=== PATIENT | male | born 1960 | race Caucasian/White ===

== ENCOUNTER 2016-11-29 15:00 | Emergency (ER) | payer OTHER ==
[~2016-11-29] VITALS: Ht 182.9 cm; Wt 102.8 kg
[2016-11-29 15:03] VITALS: TEMP 36.9; Ht 182.9 cm; Wt 102.8 kg
[2016-11-29] MEDS ORDERED: SODIUM CHLORIDE 0.9% 1000ML 2,000 ML IV STA (15:21)
[2016-11-29] MEDS ORDERED: HYDROmorphone INJ 1 MG/ML SYR IV STA (15:21)
[2016-11-29] MEDS ORDERED: ONDANSETRON INJ 2 MG/ML 2 ML VIAL IV STA (15:21)
--- NOTE | 2016-11-29 15:29 | EMERGENCY ROOM VISIT NOTE ---
History Report prepared by Gio: Anton Singer Under the Supervision of: Dr. Eric Vazquez M.D. First contact with patient: 15:09 Chief Complaint: KIDNEY STONE Stated Complaint: POSSIBLE KIDNEY STONE History of Present Illness The patient is a 56 year old male who presents to the Emergency Room with complaints of intermittent bilateral flank pain starting about 5 days ago. He also complains of intermittent diaphoresis, chills, and subjective fever. He has been taking Advil and Aleve with some relief. He has been applying heat and ice without relief. He has a history of kidney stones and reports similar symptoms today. His last kidney stone was a few years ago. The patient has a history of chronic back pain. He felt that he pulled something when he got out of bed 6 days ago but he was at baseline the rest of the day. He denies any history of prostate issues. The patient denies urinary symptoms, diarrhea, constipation, lower extremity weakness, or any other complaints. Source of History: patient Onset: about 5 days ago Position: other (bilateral flank ) Timing: intermittent Modifying Factors (Relieving): ice (without relief), heat (without relief), other (Aleve and Advil with some relief) Associated Symptoms: + fevers (subjective), + chills, + diaphoresis, No diarrhea, No urinary symptoms, No weakness Review of Systems See HPI for pertinent positives & negatives. A total of 10 systems reviewed and were otherwise negative. Past Medical & Surgical Medical Problems: (1) Kidney stone (2) Postoperative pain Surgical Problems: (1) H/O cervical spine surgery (2) H/O lumbosacral spine surgery (3) H/O neck surgery (4) History of back surgery (5) History of herniorrhaphy Family History Kidney disease Kidney stones Social History Smoking Status: Never Smoker Marital Status: Housing Status: lives with significant other Occupation Status: employed Current/Historical Medications Scheduled PRN Ibuprofen (Advil), 400-600 MG PO Q6H PRN for Pain Allergies Coded Allergies: Silodosin (Verified Allergy, Severe, SHORTNESS OF BREATH-"FELT LIKE HAVING A HEART ATTACK"., 11/29/16) Hydrocodone (Verified Allergy, Unknown, itching, tingling around mouth, 05/07) Physical Exam Vital Signs Date Time Temp Pulse Resp B/P (MAP) Pulse Ox O2 Delivery O2 Flow Rate FiO2 11/29/16 17:56 73 18 122/80 97 Room Air 11/29/16 17:10 67 16 135/86 98 11/29/16 15:03 36.9 90 20 138/88 97 Room Air Physical Exam GENERAL: Patient is uncomfortable appearing and in moderate distress. HEENT: No acute trauma, normocephalic atraumatic, mucous membranes moist, no nasal congestion, no scleral icterus. NECK: No stridor, no adenopathy, no meningismus, trachea is midline. LUNGS: No dyspnea. Clear to auscultation and equal bilaterally. No wheeze, no rhonchi. HEART: Tachycardic rate and regular rhythm. No murmurs, rubs, gallops appreciated. ABDOMEN: Soft, nontender, bowel sounds positive, no masses appreciated, no peritonitis. BACK: No midline tenderness, no CVA tenderness EXTREMITIES: Normal motion all extremities, no cyanosis, no edema. NEUROLOGIC: Alert and oriented, no acute motor or sensory deficits, no focal weakness, cranial nerves grossly intact. SKIN: Diaphoretic. No rash, no jaundice. Medical Decision & Procedures ER Provider Diagnostic Interpretation: CT results as stated below per interpretation by me and the radiologist: CT SCAN OF THE ABDOMEN AND PELVIS WITHOUT CONTRAST CLINICAL HISTORY: Bilateral flank pain COMPARISON STUDY: 04/08/2015 TECHNIQUE: CT scan of the abdomen and pelvis was performed from the lung bases to the proximal femurs. Images are reviewed in the axial, sagittal, and coronal planes. IV contrast was not administered for this examination. CT DOSE: 1862.15 mGy.cm FINDINGS: Lower chest: There are bibasal atelectatic changes. Liver: There is mild hepatic steatosis. No focal masses are visualized Gallbladder: Unremarkable. Spleen: Normal in size and attenuation. Pancreas: Unremarkable. Adrenal glands: Unremarkable. Kidneys: No renal, ureteral, or bladder calculi are visualized. There is a 1 cm left renal cyst. Bowel: There are no transition zones indicate bowel obstruction. The appendix is surgically absent. There is no evidence of acute diverticulitis. Peritoneum: There is no intraperitoneal free air or abdominal ascites. There are postsurgical changes of a left inguinal hernia repair. Vasculature: The abdominal aorta is normal in course and caliber. Adenopathy: None. Pelvic viscera: The bladder, and pelvic viscera are unremarkable. Skeletal structures: No destructive osseous lesions are seen. IMPRESSION: 1. No renal, ureteral, or bladder calculi identified 2. No evidence of bowel obstruction. No evidence of free air 3. Surgically absent appendix 4. No evidence of acute diverticulitis. Electronically signed by: Andres Adair M.D. 11/29/2016 4:02 PM Dictated Date/Time: 11/29/2016 3:58 PM Laboratory Results 11/29/16 15:24 Red Blood Count 5.37, Mean Corpuscular Volume 91.8, Mean Corpuscular Hemoglobin 30.7, Mean Corpuscular Hemoglobin Concent 33.5, Mean Platelet Volume 9.8, Neutrophils (%) (Auto) 53.4, Lymphocytes (%) (Auto) 39.3, Monocytes (%) (Auto) 5.2, Eosinophils (%) (Auto) 1.4, Basophils (%) (Auto) 0.5, Neutrophils # (Auto) 4.52, Lymphocytes # (Auto) 3.33, Monocytes # (Auto) 0.44, Eosinophils # (Auto) 0.12, Basophils # (Auto) 0.04 11/29/16 15:24 Test 11/29/16 15:24 11/29/16 17:05 White Blood Count 8.47 K/uL (4.8-10.8) Red Blood Count 5.37 M/uL (4.7-6.1) Hemoglobin 16.5 g/dL (14.0-18.0) Hematocrit 49.3 % (42-52) Mean Corpuscular Volume 91.8 fL (80-100) Mean Corpuscular Hemoglobin 30.7 pg (25-34) Mean Corpuscular Hemoglobin Concent 33.5 g/dl (32-36) Platelet Count 248 K/uL (130-400) Mean Platelet Volume 9.8 fL (7.4-10.4) Neutrophils (%) (Auto) 53.4 % Lymphocytes (%) (Auto) 39.3 % Monocytes (%) (Auto) 5.2 % Eosinophils (%) (Auto) 1.4 % Basophils (%) (Auto) 0.5 % Neutrophils # (Auto) 4.52 K/uL (1.4-6.5) Lymphocytes # (Auto) 3.33 K/uL (1.2-3.4) Monocytes # (Auto) 0.44 K/uL (0.11-0.59) Eosinophils # (Auto) 0.12 K/uL (0-0.5) Basophils # (Auto) 0.04 K/uL (0-0.2) RDW Standard Deviation 43.8 fL (36.4-46.3) RDW Coefficient of Variation 13.0 % (11.5-14.5) Immature Granulocyte % (Auto) 0.2 % Immature Granulocyte # (Auto) 0.02 K/uL (0.00-0.02) Erythrocyte Sedimentation Rate 6 mm/hr (0-14) Anion Gap 9.0 mmol/L (3-11) Est Creatinine Clear Calc Drug Dose 94.1 ml/min Estimated GFR () 87.1 Estimated GFR (Non- 75.2 BUN/Creatinine Ratio 14.0 (10-20) Calcium Level 8.7 mg/dl (8.5-10.1) Total Bilirubin 0.4 mg/dl (0.2-1) Direct Bilirubin 0.1 mg/dl (0-0.2) Aspartate Amino Transf (AST/SGOT) 21 U/L (15-37) Alanine Aminotransferase (ALT/SGPT) 35 U/L (12-78) Alkaline Phosphatase 115 U/L (45-117) Total Creatine Kinase 213 U/L (39-308) C-Reactive Protein < 0.29 mg/dl (0-0.29) Total Protein 7.7 gm/dl (6.4-8.2) Albumin 4.2 gm/dl (3.4-5.0) Lipase 137 U/L (73-393) Urine Color YELLOW Urine Appearance CLEAR (CLEAR) Urine pH 5.0 (4.5-7.5) Urine Specific [place] 1.025 (1.000-1.030) Urine Protein NEG (NEG) Urine Glucose (UA) NEG (NEG) Urine Ketones NEG (NEG) Urine Occult Blood NEG (NEG) Urine Nitrite NEG (NEG) Urine Bilirubin NEG (NEG) Urine Urobilinogen NEG (NEG) Urine Leukocyte Esterase NEG (NEG) Urine WBC (Auto) 0 /hpf (0-5) Urine RBC (Auto) 0-4 /hpf (0-4) Urine Hyaline Casts (Auto) 0 /lpf (0-5) Urine Epithelial Cells (Auto) 0-5 /lpf (0-5) Urine Bacteria (Auto) NEG (NEG) Laboratory results as reviewed by me. Medications Administered Medications (Trade) Dose Ordered Sig/Jose Route Start Time Stop Time Status Last Admin Dose Admin Sodium Chloride 2,000 ml @ 999 mls/hr Q2H1M STAT IV 11/29/16 15:21 11/29/16 17:21 DC 11/29/16 15:26 999 MLS/HR Hydromorphone HCl (Dilaudid Inj) 1 mg NOW STAT IV 11/29/16 15:21 11/29/16 15:23 DC 11/29/16 15:26 1 MG Ondansetron HCl (Zofran Inj) 4 mg NOW STAT IV 11/29/16 15:21 11/29/16 15:23 DC 11/29/16 15:26 4 MG Ketorolac Tromethamine (Toradol Inj) 30 mg NOW STAT IV 11/29/16 17:30 11/29/16 17:31 DC 11/29/16 17:56 30 MG ED Course 1509: The patient was evaluated in room A03. A complete history and physical exam was performed. 1521: Zofran Inj 4 mg IV, Dilaudid Inj 1 mg IV, Sodium Chloride 2000 ml @ 999 mls/hr IV 1610: I reevaluated the patient who is feeling better. He has not urinated yet. 1730: Toradol Inj 30 mg IV. :Reevaluated the patient who feels much better. He currently denies any pain Discussed results and discharge instructions: He verbalized understanding and agreement. I instructed him to return to the Emergency Room if his symptoms worsen at any point. The patient is ready for discharge. Medical Decision Differential: Renal Colic, Pyelonephritis, Hydronephrosis, Appendicitis, Diverticulitis, Retroperitoneal Bleed/Infection, Aortic Pathology, MSK, Neurologic Pathology, amongst other pathologies entertained. Medication Reconciliation: I attest that I have personally reviewed the patient 's current medication list. Blood pressure screening: Patient was found to have an elevated blood pressure and was referred to their primary doctor for recheck and further treatment. 56 yr old male arrives with complaint of bilateral lower flank discomfort. Also notes he has had some chills with non-measured temps. Associated nausea. Similar to previous kidney stones though hasn't had one in several years. Labs look good, urine clean, and CT without acute findings. He is feeling well after single dose Dilaudid and NSS bolus. He is not septic and is in no distress. With normal ESR/CRP and no neuro deficits I do not feel this is spinal abscess nor neuro issues. With normal pulses I doubt this is dissection and CT not consistent with rupture. CK OK. Symptoms not consistent with lyme. Denies bowel, bladder discomfort. No consistent with prostate infection. Will continue hydration at home and will give single dose Toradol to see if that helps some as outpatient. Reviewed RTED if worsening or other concerns. Did discuss doing CT with IV con if symptoms worsen or other symptoms develop but that with resolution of symptoms and currently normal findings will hold on doing that for now. Impression Primary Impression: Bilateral flank pain Additional Impression: Body aches Scribe Attestation The scribe's documentation has been prepared under my direction and personally reviewed by me in its entirety. I confirm that the note above accurately reflects all work, treatment, procedures, and medical decision making performed by me. Departure Information Dispostion Home / Self-Care Referrals Adolfo Zepeda M.D. (PCP) Forms HOME CARE DOCUMENTATION FORM, IMPORTANT VISIT INFORMATION Patient Instructions My [facility] [employer] Additional Instructions Keep well hydrated and avoid excessive exertion. Use Tylenol and Motrin as needed for mild symptoms. If severe worsening, fevers, weakness in legs, discoloration, vomiting, abdominal pain or other concerns, return for further evaluation. Problem Qualifiers
[2016-11-29 15:41] LABS: BASO % 0.5 %; BASO ABS # 0.04 K/uL (0-0.2); COMPLETE YES; EOS % 1.4 %; HEMATOCRIT 49.3 % (42-52); IG% 0.2 %; LYMPH % 39.3 %; LYMPH ABS # 3.33 K/uL (1.2-3.4); MEAN CELL VOLUME 91.8 fL (80-100); MEAN CORPUSCULAR HEMOGLOBIN 30.7 pg (25-34); MEAN CORPUSCULAR HGB CONC 33.5 g/dl (32-36); MEAN PLATELET VOLUME 9.8 fL (7.4-10.4); MONO % 5.2 %; NEUT % 53.4 %; PLATELET COUNT 248 K/uL (130-400); RED BLOOD COUNT 5.37 M/uL (4.7-6.1); WHITE BLOOD COUNT 8.47 K/uL (4.8-10.8)
[2016-11-29 15:52] LABS: ALT/SGPT 35 U/L (12-78); AST/SGOT 21 U/L (15-37); BLOOD UREA NITROGEN 15 mg/dl (7-18); CALCIUM 8.7 mg/dl (8.5-10.1); CARBON DIOXIDE 26 mmol/L (21-32); CHLORIDE 107 mmol/L (98-107); GLUCOSE 138 mg/dl (70-99); POTASSIUM 3.9 mmol/L (3.5-5.1); SODIUM 142 mmol/L (136-145)
[2016-11-29 15:55] LABS: ALKALINE PHOSPHATASE 115 U/L (45-117); C-REACTIVE PROTEIN < 0.29 mg/dl (0-0.29)
--- NOTE | 2016-11-29 16:03 | DIAGNOSTIC IMAGING REPORT ---
CT SCAN OF THE ABDOMEN AND PELVIS WITHOUT CONTRAST CLINICAL HISTORY: Bilateral flank pain COMPARISON STUDY: 04/08/2015 TECHNIQUE: CT scan of the abdomen and pelvis was performed from the lung bases to the proximal femurs. Images are reviewed in the axial, sagittal, and coronal planes. IV contrast was not administered for this examination. CT DOSE: 1862.15 mGy.cm FINDINGS: Lower chest: There are bibasal atelectatic changes. Liver: There is mild hepatic steatosis. No focal masses are visualized Gallbladder: Unremarkable. Spleen: Normal in size and attenuation. Pancreas: Unremarkable. Adrenal glands: Unremarkable. Kidneys: No renal, ureteral, or bladder calculi are visualized. There is a 1 cm left renal cyst. Bowel: There are no transition zones indicate bowel obstruction. The appendix is surgically absent. There is no evidence of acute diverticulitis. Peritoneum: There is no intraperitoneal free air or abdominal ascites. There are postsurgical changes of a left inguinal hernia repair. Vasculature: The abdominal aorta is normal in course and caliber. Adenopathy: None. Pelvic viscera: The bladder, and pelvic viscera are unremarkable. Skeletal structures: No destructive osseous lesions are seen. IMPRESSION: 1. No renal, ureteral, or bladder calculi identified 2. No evidence of bowel obstruction. No evidence of free air 3. Surgically absent appendix 4. No evidence of acute diverticulitis. Electronically signed by: Andres Adair M.D. 11/29/2016 4:02 PM Dictated Date/Time: 11/29/2016 3:58 PM
[2016-11-29] MEDS ORDERED: IBUP-1277 PO (16:09)
[2016-11-29 17:18] LABS: URINE APPEARANCE CLEAR (CLEAR); URINE BILIRUBIN NEG (NEG); URINE COLOR YELLOW; URINE EPITHELIAL CELL AUTO 0-5 /lpf (0-5); URINE NITRITE NEG (NEG); URINE SPECIFIC GRAVITY 1.025 (1.000-1.030); UROBILINOGEN NEG (NEG); ZZUR CULT IF INDIC CLEAN CATCH NO
[2016-11-29 17:25] LABS: MANUAL MICROSCOPIC REQUIRED? NO; REVIEW REQ? NO
[2016-11-29] MEDS ORDERED: KETOROLAC TROMETHAMINE 30 MG/ML VIAL IV STA (17:30)
[2016-11-29 17:56] VITALS: BP 122/80; PULSE 73; O2SAT 97
== END 2016-11-29 18:07 | disposition home or self-care (01) ==
LOC: C.EDB 15:02 → C.EDA 18:07
DX: R10.84 Generalized abdominal pain (principal)

== ENCOUNTER 2017-07-30 14:18 | Emergency (ER) | payer OTHER ==
[~2017-07-30] VITALS: Ht 182.9 cm; Wt 115.8 kg
[2017-07-30 14:25] VITALS: TEMP 36.6; Ht 182.9 cm; Wt 115.8 kg
[2017-07-30] MEDS ORDERED: KETOROLAC TROMETHAMINE 30 MG/ML VIAL IV STA (15:31)
[2017-07-30] MEDS ORDERED: OPTIRAY 320 IV PRN (15:45)
[2017-07-30 15:57] LABS: BASO % 0.4 %; BASO ABS # 0.03 K/uL (0-0.2); EOS ABS # 0.21 K/uL (0-0.5); HEMOGLOBIN 16.3 g/dL (14.0-18.0); IG# 0.02 K/uL (0.00-0.02); LYMPH ABS # 2.66 K/uL (1.2-3.4); MEAN CELL VOLUME 90.6 fL (80-100); MEAN CORPUSCULAR HEMOGLOBIN 30.8 pg (25-34); MEAN PLATELET VOLUME 9.5 fL (7.4-10.4); MONO % 8.4 %; MONO ABS # 0.59 K/uL (0.11-0.59); NEUT % 49.9 %; NEUT ABS # 3.49 K/uL (1.4-6.5); PLATELET COUNT 212 K/uL (130-400); RED CELL DISTRIBUTION WIDTH CV 12.9 % (11.5-14.5); RED CELL DISTRIBUTION WIDTH SD 42.3 fL (36.4-46.3)
[2017-07-30] MEDS ORDERED: IBUP-1277 PO (16:09)
[2017-07-30 16:24] LABS: CALCIUM 9.1 mg/dl (8.5-10.1); CREATININE 1.53 mg/dl (0.60-1.40); POTASSIUM 3.9 mmol/L (3.5-5.1)
--- NOTE | 2017-07-30 16:54 | DIAGNOSTIC IMAGING REPORT ---
FACIAL-MAXILLOFACIAL WITH CLINICAL HISTORY: L sided facial pain, visual changes tearing, fever TECHNIQUE: Transaxial acquisition with multi axial reformatted images COMPARISON STUDY: None FINDINGS: Several small periapical abscesses involving the left maxilla and to a lesser extent left mandible. Both of these are localized at 2 the osseous structures and are at the site of prior tooth extractions. No significant associated soft tissue mass. No drainable abscess or collection. The orbital margins are intact. Globes are symmetric. The retroseptal structures are unremarkable. Major salivary glands including parotid and submandibular glands are unremarkable. Postoperative changes of the cervical spine consistent with an anterior fusion are noted. IMPRESSION: 1. Poor dentition of the upper left maxilla and to a lesser degree left mandible 2. Several small periapical abscesses localized to the osseous structures of the left maxilla and left mandible. 3. No evidence for abscess collection or obstruction. 4. No abnormalities of the orbits or surrounding bony structures. The above report was generated using voice recognition software. It may contain grammatical, syntax or spelling errors. Electronically signed by: Thomas Li M.D. 07/30/2017 4:53 PM Dictated Date/Time: 07/30/2017 4:45 PM
[2017-07-30] MEDS ORDERED: CLINDAMYCIN IV 900 MG in DEXTROSE 5% 100ML 100 ML IV ONE (17:00)
[2017-07-30] MEDS ORDERED: CLIN300C10 PO (18:40)
[2017-07-30] MEDS ORDERED: TRAM-10 PO (18:40)
[2017-07-30 18:45] VITALS: BP 114/56; PULSE 90; O2SAT 97
--- NOTE | 2017-07-30 21:44 | EMERGENCY ROOM VISIT NOTE ---
ED Visit Note First contact with patient: 14:41 CHIEF COMPLAINT: Dental pain and shortness of breath while walking. HISTORY OF PRESENT ILLNESS: Mr. Reilly is a 57-year-old white male who ambulates into the ED complaining of left maxillary dental pain. He reports in May 2016 he had 3 teeth pulled from the left maxillary area. And then had a return to the dentist to have a maxillary scraping of the bone. During each of these interventions he was placed on a 5 day course of antibiotics. He reports progressive left maxillary dental pain for 2 days. He describes his discomfort as a pressure and throbbing sensation over the left maxilla and extending into the face including the cheek, superior aspect of the nose. He rates his discomfort 8/10. He reports his pain is worse at night. He has not identified any alleviating factors related to the pain. He has been using ibuprofen without relief of his discomfort. Associated with his pain he noted chills, some tearing of the left eye, mild blurry vision in the left eye and shortness of breath with ambulation. Hours over the right mandible. The pain is now steady and severe and radiates to the face. He denies wendy fevers, sweats, headache, dizziness, lightheadedness, hearing changes, sore throat, difficulty swallowing, neck pain/stiffness, difficulty swallowing, drooling, painful talking, cough, wheezing, coughing up blood, chest pain/discomfort, previous clots, claudication, cramping, recent surgery/ inactivity/extended travel, decreased appetite, nausea, vomiting. REVIEW OF SYSTEMS: As noted above in History of Present Illness. 8 body systems were reviewed with this patient and found to be negative unless noted above otherwise. PMH: Kidney stones, status post unspecified cervical and lumbar sacral spine surgeries and hemorrhoidectomy. CURRENT MEDICATION: Patient denies.. ALLERGIES TO MEDICATION: Hydrocodone, silodosin. SOCIAL HISTORY: Patient is currently employed; he feels safe in his home environment; he denies to tobacco and alcohol use. PHYSICAL EXAM: Vital Signs: Date Time Temp Pulse Resp B/P (MAP) Pulse Ox O2 Delivery O2 Flow Rate FiO2 07/30/17 18:45 90 18 114/56 97 07/30/17 17:45 91 18 141/56 97 Room Air 07/30/17 14:25 36.6 96 18 153/93 95 Room Air General: 57 year-old white male in mild distress due to pain, nontoxic appearing , afebrile and hemodynamically stable. Neurological: Awake, alert and oriented to person, place and time. Answering questions appropriately and following commands. Normal gait. Good hand eye coordination. No focal motor or sensory deficits. Skin: Warm, dry and pink. Face: Over the left side of the face there is a mild erythema and around the cheek and the superior aspect of the nose. There is no palpable abscesses. There is no lymphangitis. HEENT: Atraumatic and normocephalic. Oral cavity is moist and pink. Airway is patent. Speech normal and clear. Recent dental surgical sites were evaluated were mildly erythematous and edematous. I was not able to palpate any abscesses and there was no purulent drainage. No cervical or submandibular lymphadenopathy. Chest: Lungs clear to auscultation and equal bilaterally with symmetrical chest wall movements. No wheezing, rales or rhonchi. No increased respiratory effort or rate. Heart: Regular rate, and rhythm. No lifts, heaves or thrills. No murmurs heard. PMI was not displaced. No lifts, heaves or thrills. Abdomen: Obese, soft and nontender. No guarding, rigidity. Bowel sounds present in all quadrants. Lower Extremities: No gross bony deformity. No calf tenderness or cords. Distal neurovascular status is are intact and equal bilaterally. No calf tenderness or cords. ED COURSE: Patient is assessed as noted above. Patient's medication list was reviewed. Laboratory Testing: Test 07/30/17 15:40 07/30/17 15:47 Range/Units White Blood Count 7.00 4.8-10.8 K/uL Red Blood Count 5.30 4.7-6.1 M/uL Hemoglobin 16.3 14.0-18.0 g/dL Hematocrit 48.0 42-52 % Mean Corpuscular Volume 90.6 80-100 fL Mean Corpuscular Hemoglobin 30.8 25-34 pg Mean Corpuscular Hemoglobin Concent 34.0 32-36 g/dl Platelet Count 212 130-400 K/uL Mean Platelet Volume 9.5 7.4-10.4 fL Neutrophils (%) (Auto) 49.9 % Lymphocytes (%) (Auto) 38.0 % Monocytes (%) (Auto) 8.4 % Eosinophils (%) (Auto) 3.0 % Basophils (%) (Auto) 0.4 % Neutrophils # (Auto) 3.49 1.4-6.5 K/uL Lymphocytes # (Auto) 2.66 1.2-3.4 K/uL Monocytes # (Auto) 0.59 0.11-0.59 K/uL Eosinophils # (Auto) 0.21 0-0.5 K/uL Basophils # (Auto) 0.03 0-0.2 K/uL RDW Standard Deviation 42.3 36.4-46.3 fL RDW Coefficient of Variation 12.9 11.5-14.5 % Immature Granulocyte % (Auto) 0.3 % Immature Granulocyte # (Auto) 0.02 0.00-0.02 K/uL Sodium Level 137 136-145 mmol/L Potassium Level 3.9 3.5-5.1 mmol/L Chloride Level 103 98-107 mmol/L Carbon Dioxide Level 26 21-32 mmol/L Anion Gap 8.0 3-11 mmol/L Blood Urea Nitrogen 18 7-18 mg/dl Creatinine 1.53 0.60-1.40 mg/dl Est Creatinine Clear Calc Drug Dose 70.8 ml/min Estimated GFR () 58.1 Estimated GFR (Non- 50.1 BUN/Creatinine Ratio 11.5 10-20 Random Glucose 86 70-99 mg/dl Calcium Level 9.1 8.5-10.1 mg/dl Bedside Troponin I < 0.030 0-0.045 ng/ml EKG: Was read by myself and shows normal sinus rhythm with a ventricular rate of 81 bpm. Normal axis, intervals and complexes. Nonspecific ST lateral leads changes. This was compared to a previous from May [address] changes were new from previous. Facial CT with Contrast: Was reviewed by myself and read by the radiologist showing poor dentition over the upper left maxilla and to a lesser degree over the left mandible. Several small apical abscesses localized to the osseous structures of the left maxilla and mandible. No evidence of abscess collection or obstruction and no abnormalities of the orbits and the surrounding bony tissue. An IV lock was initiated and patient received 30 mg of Toradol IV for pain and 900 mg of clindamycin IV for antibiotic coverage. Patient was reassessed multiple times during her stay in the emergency department. Patient is educated about his findings and instructed on her treatment plan; she verbalizes understanding and agreement with this plan. CLINIC IMPRESSION: Left maxillary and mandibular periapical abscesses. Dyspnea on exertion. DISPOSITION: Patient discharged home in stable condition; prior to departure he was reassessed and subjectively reported he was rated his discomfort 7/10. PLAN: Comfort measures were discussed including a sliding pain scale of ibuprofen, acetaminophen and [place]. She was warned that [place] is a narcotic and once taking this medication she should not drink, drive or do any activities that require her full attention. Patient was encouraged to followup with personal dentist for definitive care and treatment. Patient was encouraged to return the ED for facial swelling or fevers.
== END 2017-07-30 18:45 | disposition home or self-care (01) ==
LOC: C.EDB 14:19 → C.EDD 18:45
DX: K04.7 Periapical abscess without sinus (principal); R06.09 Other forms of dyspnea; K08.9 Disorder of teeth and supporting structures, unspecified; Z98.818 Other dental procedure status; Z88.6 Allergy status to analgesic agent; Z88.8 Allergy status to other drugs, medicaments and biological substances

== ENCOUNTER 2020-12-05 15:57 | Observation (INO) ==
[2020-12-05 16:34] LABS: Hematocrit (blood only) 46.4 % (42-52); Hemoglobin 15.4 g/dL (14.0-18.0); Mean Corpuscular Hemoglobin 30.2 pg (25-34); Mean Corpuscular Hgb Conc 33.2 g/dL (32-36); Mean Platelet Volume 9.4 fL (7.4-10.4); Platelet Count 288 K/uL (130-400); RDW Standard Deviation 46.7 fL (36.4-46.3); White Blood Count 7.44 K/uL (4.8-10.8)
--- NOTE | 2020-12-05 16:52 | Emergency Department Note ---
Impression & Plan SOB (shortness of breath), Substernal chest pain ED Provider Note INFORMANT: Patient ED PROVIDER(S): Angelo Crystal MD CHIEF COMPLAINT: Shortness of breath PLAN: Disposition: Admitted Condition: Good Outpatient prescription management: none Referral: None MEDICAL DECISION MAKING: Patient presented by direction of his PCP after cardiology consultation because of chest pain and shortness of breath. He has had a work-up ongoing since his ER visit. He had slight elevation of LFTs. The patient recently had a CT scan was negative. An ECG was performed and showed a normal sinus rhythm without ischemia. His CBC and chemistry panel were unremarkable. Troponin was negative. The patient declined analgesia in the emergency department. In light of his issues and college service officer direction further management will be necessary in the hospital. Consultation was made with the [facility], . Patient was evaluated in ER admitted for further management. Triage Nursing notes reviewed and agree them. Vital Signs: reviewed and remarkable for no significant abnormalities Differential diagnosis: Reactive airway disease, pneumonia, pneumothorax, COPD, CHF, infections, cardiac ischemia, pulmonary embolism, musculoskeletal, gastrointestinal, as well as other pathologies. Diagnostics interpreted by me: ECG: Rate: 79 Rhythm:Normal sinus [place]:Normal QRS:Normal ST segements:No elevation or depression Other:No PACs or PVCs Cardiac Monitoring: Cardiac monitoring ordered by me: The patient was placed on continuous cardiac monitoring and observed. It revealed a normal sinus rhythm at 82 beats per minute without ectopy or evidence of dysrhythmia. Imaging studies: Chest x-ray. Findings: A chest x-ray was performed and revealed no pneumothorax, effusion, infiltrate, pulmonary edema, free air under the diaphragm, or wide mediastinum. Impression: No acute disease. HPI: The patient is a 60 year old male who presents to the Emergency Room with complaints of SOB. This started 6 weeks ago, improved and is worsening over the last two weeks. The patient also notes the following associated symptoms, substernal chest painweakness,. The patient has found no relieving factors. Current pain is rated as 5/10. Worse with exertion. Diagnoses with covid 5/5. Recently diagnosed with lyme. on doxycycline. PcP saw today and consulted with cardiology. Directed to ER for further work up. Had CT 4 days ago and negative for PE. Pt denies LOC, headache, fevers, chills, diaphoresis, visual changes, neck pain, nausea, vomiting, abdominal pain, back pain, melena, hematochezia, urinary symptoms, numbness, lymphadenopathy, rash, or other complaints. ROS: See above HPI for pertinent positives & negatives. A total of 10 systems reviewed and were otherwise negative. PAST MEDICAL HISTORY:See Below , COVID, elevated LFTs PAST SURGICAL HISTORY:See Below, FAMILY HISTORY:See Below SOCIAL HISTORY:See Below, HOME MEDICATIONS:See Below ALLERGIES:See Below VITALS:See Below PHYSICAL EXAMINATION: GENERAL: Awake, tired-appearing, in no distress HENT: Normocephalic, atraumatic. Oropharynx unremarkable. EYES: Normal conjunctiva. Sclera non-icteric. NECK: Inspection normal. Non-tender. Supple. No nuchal rigidity. FROM. No masses. RESPIRATORY: Clear to auscultation. No wheezes. No rales. Normal respiratory effort. CARDIAC: Normal rate. Normal rhythm. No murmurs. No rubs. Extremities warm and well perfused. Pulses equal. No JVD. GI: Soft, non-distended. No tenderness to palpation. No rebound or guarding. No masses. RECTAL: Deferred. MUSCULOSKELETAL: Atraumatic. Chest examination reveals no tenderness. The back is symmetrical on inspection without obvious abnormality. There is no CVA tenderness to palpation. No joint edema. LOWER EXTREMITIES: Calves are equal size bilaterally and non-tender. No edema. No discoloration. NEURO: Normal sensorium. No sensory or motor deficits noted. SKIN: No rash or jaundice noted. Angelo Crystal MD Past Med/Surg History Medical History Degenerative disc disease Kidney stones Pneumonia due to COVID-19 virus Surgical History H/O cervical spine surgery "x2" H/O lumbosacral spine surgery "x2" History of appendectomy History of arthroscopy of left knee History of cystoscopy History of fusion of cervical spine x2--limited from side to side and cant tip head back very far History of herniorrhaphy "x2" History of left inguinal hernia repair x3 History of lithotripsy History of lumbar discectomy History of repair of left rotator cuff History of tooth extraction Family History Mother Family hx of colon cancer Diabetes Father Healthy adult Brother Healthy adult Sister Healthy adult Other Colorectal cancer No family history of adverse response to anesthesia Denies family history of Prostate cancer Social History Smoking Status: Never smoker Second Hand Exposure: Yes (parents smoked); Hx Alcohol Use: No Hx Substance Use: No Preferred Language: Kyrgyz Communication Ability: Effective Safety And Health Manager Required: No Beliefs That Will Affect Care: None Current Living Situation: Significant Other current occupational status: disabled Other Information That Helps Us Care for You: No Feels Safe at Home: Yes Safety Concerns: Feels Safe At This Time Assistive Devices: None Allergies Allergies Allergy/AdvReac Type Severity Reaction Status Date / Time silodosin Allergy Severe SHORTNESS Verified 12/05/20 17:26 OF BREATH-"FELT LIKE HAVING A HEART ATTACK". hydrocodone Allergy Mild itching, Verified 12/05/20 17:26 tingling around mouth Home Meds Home Medications Medication Instructions Recorded Confirmed albuterol sulfate [Ventolin HFA] 2 puff INHALATION DIRECTED PRN 12/05/20 12/05/20 [id number]-[id number] 1 tab PO DIRECTED PRN 12/05/20 12/05/20 [Excedrin Migraine] ibuprofen [Advil] 600 mg PO Q6H PRN 12/05/20 12/05/20 Previous Rx's Medication Instructions Recorded doxycycline hyclate 100 mg tablet 100 mg PO BID #42 tab 12/02/20 Results & Data (ED) Vital Signs Vital Signs - 24 hr 12/05/20 16:02 12/05/20 16:12 12/05/20 16:20 Temperature 36.3 C L Temperature Source Temporal Artery Scan Pulse Rate 86 83 81 Pulse Rate from SpO2 Sensor 84 82 Pulse Rhythm Respiratory Rate 18 12 19 Respiratory Effort / Characteristics Non-Labored Spontaneous Respiratory Depth Normal Respiratory Pattern Regular Blood Pressure 135/80 153/87 H Blood Pressure Mean 98 109 Pulse Oximetry 96 96 95 Oxygen Delivery Method Room Air Sepsis Recent Fever Within 48 Hours No Sepsis New/Unexplained Change in Mental Status No Sepsis Action Taken by Nursing No Action Required 12/05/20 16:22 12/05/20 16:30 12/05/20 16:40 Temperature Temperature Source Pulse Rate 82 83 Pulse Rate from SpO2 Sensor 84 76 Pulse Rhythm Regular Respiratory Rate 18 15 Respiratory Effort / Characteristics Respiratory Depth Respiratory Pattern Blood Pressure 127/84 Blood Pressure Mean 98 Pulse Oximetry 96 93 96 Oxygen Delivery Method Room Air Sepsis Recent Fever Within 48 Hours Sepsis New/Unexplained Change in Mental Status Sepsis Action Taken by Nursing 12/05/20 16:50 12/05/20 17:00 12/05/20 17:10 Temperature Temperature Source Pulse Rate 78 91 H 81 Pulse Rate from SpO2 Sensor 80 Pulse Rhythm Respiratory Rate 20 25 H 14 Respiratory Effort / Characteristics Respiratory Depth Respiratory Pattern Blood Pressure 142/83 H Blood Pressure Mean 102 Pulse Oximetry 96 Oxygen Delivery Method Sepsis Recent Fever Within 48 Hours Sepsis New/Unexplained Change in Mental Status Sepsis Action Taken by Nursing 12/05/20 17:20 12/05/20 17:30 12/05/20 18:00 Temperature Temperature Source Pulse Rate 83 81 80 Pulse Rate from SpO2 Sensor 82 80 79 Pulse Rhythm Respiratory Rate 16 17 17 Respiratory Effort / Characteristics Respiratory Depth Respiratory Pattern Blood Pressure 151/106 H 144/96 H Blood Pressure Mean 121 112 Pulse Oximetry 96 95 93 Oxygen Delivery Method Sepsis Recent Fever Within 48 Hours Sepsis New/Unexplained Change in Mental Status Sepsis Action Taken by Nursing 12/05/20 18:30 Temperature Temperature Source Pulse Rate 80 Pulse Rate from SpO2 Sensor 81 Pulse Rhythm Respiratory Rate 17 Respiratory Effort / Characteristics Respiratory Depth Respiratory Pattern Blood Pressure Blood Pressure Mean Pulse Oximetry 95 Oxygen Delivery Method Sepsis Recent Fever Within 48 Hours Sepsis New/Unexplained Change in Mental Status Sepsis Action Taken by Nursing Laboratory Data Result diagrams: 12/05/20 16:22 12/05/20 16:22 Lab Results 12/05/20 12/05/20 12/05/20 Range/Units 16:22 16:22 16:22 WBC 7.44 (4.8-10.8) K/uL RBC 5.10 (4.7-6.1) M/uL Hgb 15.4 (14.0-18.0) g/dL Hct 46.4 (42-52) % MCV 91.0 (80-100) fL MCH 30.2 (25-34) pg MCHC 33.2 (32-36) g/dL RDW Std Deviation 46.7 H (36.4-46.3) fL RDW Coeff of Melody 14.0 (11.5-14.5) % Plt Count 288 (130-400) K/uL MPV 9.4 (7.4-10.4) fL Immature Gran % (Auto) 0.7 % Neut % (Auto) 41.2 % Lymph % (Auto) 47.2 % Dewitt % (Auto) 9.1 % Eos % (Auto) 1.1 % Baso % (Auto) 0.7 % Neut # (Auto) 3.07 (1.4-6.5) K/uL Lymph # (Auto) 3.51 H (1.2-3.4) K/uL Dewitt # (Auto) 0.68 H (0.11-0.59) K/uL Eos # (Auto) 0.08 (0-0.5) K/uL Baso # (Auto) 0.05 (0-0.2) K/uL Immature Gran # (Auto) 0.05 H (0.00-0.02) K/uL PT 9.6 (9.0-12.0) Seconds INR 0.9 (0.9-1.1) Sodium 138 (136-145) mmol/L Potassium 3.5 (3.5-5.1) mmol/L Chloride 105 (98-107) mmol/L Carbon Dioxide 24 (21-32) mmol/L Anion Gap 9.0 (3-11) BUN 14 (7-18) mg/dl Creatinine 0.94 (0.6-1.4) mg/dl Est Cr Clr Drug Dosing 110.1 ml/min Est GFR ( Amer) 102.4 ml/min Est GFR (Non-Af Amer) 88.4 ml/min BUN/Creatinine Ratio 14.8 (10-20) Glucose 147 H (70-99) mg/dl Calcium 9.4 (8.5-10.1) mg/dl Magnesium 2.5 H (1.8-2.4) mg/dl Total Bilirubin 0.6 (0.2-1) mg/dl AST 62 H (15-37) U/L ALT 169 H (12-78) U/L Alkaline Phosphatase 179 H (45-117) U/L Total Creatine Kinase 134 (39-308) U/L Troponin I < 0.015 (0-0.045) ng/ml C-Reactive Protein 1.44 H (0-0.29) mg/dl NT-Pro-B Natriuret Pep 15 (0-900) pg/ml Total Protein 8.0 (6.4-8.2) gm/dl Albumin 3.9 (3.4-5.0) gm/dl Globulin 4.1 H (2.5-4.0) gm/dl Albumin/Globulin Ratio 1.0 (0.9-2) Anaplasma Smear See Comment COVID-19 Eval Order SARS-CoV-2 (PCR) (Negative) 12/05/20 12/05/20 Range/Units 17:23 17:23 WBC (4.8-10.8) K/uL RBC (4.7-6.1) M/uL Hgb (14.0-18.0) g/dL Hct (42-52) % MCV (80-100) fL MCH (25-34) pg MCHC (32-36) g/dL RDW Std Deviation (36.4-46.3) fL RDW Coeff of Melody (11.5-14.5) % Plt Count (130-400) K/uL MPV (7.4-10.4) fL Immature Gran % (Auto) % Neut % (Auto) % Lymph % (Auto) % Dewitt % (Auto) % Eos % (Auto) % Baso % (Auto) % Neut # (Auto) (1.4-6.5) K/uL Lymph # (Auto) (1.2-3.4) K/uL Dewitt # (Auto) (0.11-0.59) K/uL Eos # (Auto) (0-0.5) K/uL Baso # (Auto) (0-0.2) K/uL Immature Gran # (Auto) (0.00-0.02) K/uL PT (9.0-12.0) Seconds INR (0.9-1.1) Sodium (136-145) mmol/L Potassium (3.5-5.1) mmol/L Chloride (98-107) mmol/L Carbon Dioxide (21-32) mmol/L Anion Gap (3-11) BUN (7-18) mg/dl Creatinine (0.6-1.4) mg/dl Est Cr Clr Drug Dosing ml/min Est GFR ( Amer) ml/min Est GFR (Non-Af Amer) ml/min BUN/Creatinine Ratio (10-20) Glucose (70-99) mg/dl Calcium (8.5-10.1) mg/dl Magnesium (1.8-2.4) mg/dl Total Bilirubin (0.2-1) mg/dl AST (15-37) U/L ALT (12-78) U/L Alkaline Phosphatase (45-117) U/L Total Creatine Kinase (39-308) U/L Troponin I (0-0.045) ng/ml C-Reactive Protein (0-0.29) mg/dl NT-Pro-B Natriuret Pep (0-900) pg/ml Total Protein (6.4-8.2) gm/dl Albumin (3.4-5.0) gm/dl Globulin (2.5-4.0) gm/dl Albumin/Globulin Ratio (0.9-2) Anaplasma Smear COVID-19 Eval Order Covid19 at [facility] SARS-CoV-2 (PCR) NEGATIVE (Negative) Administered Medications Doxycycline Hyclate (Doxycycline Hyclate 100 Mg Cap) 100 mg PO BID YUNG Stop: 12/22/20 23:59 Last Admin: 12/05/20 21:50 Dose: 100 mg Documented by: [id number] Enoxaparin Sodium (Enoxaparin Inj 40 Mg/0.4 Ml Syr) 40 mg SQ Q24H YUNG Stop: 01/04/21 20:59 Last Admin: 12/05/20 21:51 Dose: 40 mg Documented by: [id number] Imaging Data Radiologist's Impression: Chest X-Ray 12/05/20 17:09 XR chest 1V portable CLINICAL HISTORY: Atypical chest pain COMPARISON STUDY: 10/25/2020 FINDINGS: The cardiac and mediastinal contours remain stable. There is no failure. There is no focal pulmonary consolidation. There are no pleural effusions.[ IMPRESSION: No active disease in the chest. ACT 112: Negative or not required by law. Electronically signed by: Andres Adair M.D. 12/05/2020 5:37 PM Discharge Plan Visit Data Chief Complaint: Shortness of Breath/Dyspnea Stated Complaint: SOB, Chest pains ED Provider: Angelo Crystal Discharge Problem: SOB (shortness of breath), Substernal chest pain Patient Disposition: Admitted As Inpatient Discharge Instructions Interventions: ED Discharge Assessment Last Done: 12/05/20 19:36
[2020-12-05 17:01] LABS: Alanine Aminotransferase 169 U/L (12-78); Albumin Level 3.9 gm/dl (3.4-5.0); Aspartate Aminotransferase 62 U/L (15-37); BUN Creatinine Ratio 14.8 (10-20); Blood Urea Nitrogen 14 mg/dl (7-18); Calcium 9.4 mg/dl (8.5-10.1); Carbon Dioxide 24 mmol/L (21-32); Chloride 105 mmol/L (98-107); Creatinine Clr Calc Pharmacy 110.1 ml/min; Est GFR (African American) 102.4 ml/min; Est GFR (Non-African American) 88.4 ml/min; Glucose 147 mg/dl (70-99); Magnesium 2.5 mg/dl (1.8-2.4); Potassium 3.5 mmol/L (3.5-5.1); Sodium 138 mmol/L (136-145)
[2020-12-05 17:08] LABS: Alkaline Phosphatase 179 U/L (45-117); Bilirubin,Total 0.6 mg/dl (0.2-1); Globulin 4.1 gm/dl (2.5-4.0); NT Pro B Type Natriuretic Pept 15 pg/ml (0-900); Troponin I < 0.015 ng/ml (0-0.045)
[2020-12-05 17:26] LABS: Basophils # (auto) 0.05 K/uL (0-0.2); Basophils % (auto) 0.7 %; Eosinophils # (auto) 0.08 K/uL (0-0.5); Eosinophils % (auto) 1.1 %; Immature Granulocytes # (auto) 0.05 K/uL (0.00-0.02); Immature Granulocytes % (auto) 0.7 %; Lymphocytes # (auto) 3.51 K/uL (1.2-3.4); Lymphocytes % (auto) 47.2 %; Monocytes # (auto) 0.68 K/uL (0.11-0.59); Monocytes % (auto) 9.1 %; Neutrophils # (auto) 3.07 K/uL (1.4-6.5); Neutrophils % (auto) 41.2 %
--- NOTE | 2020-12-05 17:38 | XRay Report ---
XR chest 1V portable CLINICAL HISTORY: Atypical chest pain COMPARISON STUDY: 10/25/2020 FINDINGS: The cardiac and mediastinal contours remain stable. There is no failure. There is no focal pulmonary consolidation. There are no pleural effusions.[ IMPRESSION: No active disease in the chest. ACT 112: Negative or not required by law. Electronically signed by: Andres Adair M.D. 12/05/2020 5:37 PM
--- NOTE | 2020-12-05 18:44 | History & Physical Report ---
Date of Service December 05, 2020 Assessment & Plan (1) Ongoing symptomatic disease due to COVID-19 virus: Patient as per HPI with ongoing dyspnea, fevers - His CT scan of his chest reviewed from 12/01- still with mild ground glass opacities and CXR with no active process - Symptoms with improvement of albuterol - Will work through his process of ongoing symptoms- will check inflammatory markers with CRP, ESR, - Trend troponin for remaining evening. CPK pending - ECHO in the morning- evaluate heart size/motion, inflammation - PFT's would be needed if cardiac workup remains negative - CMP in morning follow liver enzymes (2) SOB (shortness of breath): As above - Continue albuterol inhaler - albuterol nebulizers for symptoms uncontrolled with inh therapy or if needed in between (3) Chest pain: Associated with his dyspnea- ECG normal at this time - Continue to trend out - ECHO in the morning (4) Fatty liver disease, nonalcoholic: Unsure of significance with this following COVID long haul - Follow liver enzymes - Continue Doxy - SWAPNA, Hepatitis panels sent, iron, TIBC, and tranferrin (5) Lymphadenopathy: As above- remaining inflammatory process following COVID- other inflammatory biomarkers (6) Lyme disease: IGM postivie- pending confirmation -continue with Doxy. - Patietn re-educated on taking with full glass of water and remaining upright for 30 minutes following dose - Anaplasmosis smear negative- awaiting confirmation History of Present Illness Primary Care Provider: Adolfo Zepeda MD 60 YOM with past medical history of obesity, shingles, COVID-19. Patient comes to the EMD today for continued dyspnea. The patient was originally diagnosed with COVID on Oct 23 2020, had mild hypoxemia was treated with Decadron at home and did not require hospitalization. He has been continuing to [place] his breathlessness and has worked closely with his PCP. He came to the EMD on 12/01/20 chest pressure, dyspnea, fever, headache, sweats, and continued elevated biomarkers(CRP, D-dimer, LFT). He had a CTA of the chest that did not show pulmonary embolism, had CT of the abdomen/pelvis with mildly enlarge portacaval/ruben hepatis lymph nodes and mild splenomegaly. Doppler of the legs without DVT. He had a lyme done that was positive IGM ab that was positive and was started on doxycycline 100 mg PO BID, he has had 4 doses of this and has not noted effects. He continues to have sweats at night. He had some chest pressure last night that was relieved with 3 puffs of his albuterol inhaler, but he said just felt like someone just squeezing him. [place] the post[place]office [place] other day and made it about 1/2 block and had to turn around due to breathlessness. He is winded while talking with him as well. He came to the EMD for continued workup to evaluate cardiac nature of his dyspnea through his PCP. His COVID test is negative on 12/01 and today 12/05 Allergies Allergy/AdvReac Type Severity Reaction Status Date / Time silodosin Allergy Severe SHORTNESS Verified 12/05/20 17:26 OF BREATH-"FELT LIKE HAVING A HEART ATTACK". hydrocodone Allergy Mild itching, Verified 12/05/20 17:26 tingling around mouth Home Medications Medication Instructions Recorded Confirmed Type doxycycline hyclate 100 mg tablet 100 mg PO BID #42 tab 12/02/20 12/09/20 Rx Excedrin Migraine 1 tab PO DIRECTED PRN 12/05/20 12/09/20 History ibuprofen [Advil] 600 mg PO Q6H PRN 12/05/20 12/09/20 History albuterol sulfate [Ventolin HFA] 2 puff INHALATION DIRECTED PRN 12/06/20 12/09/20 Rx #1 g Past Med/Surg History Medical History Degenerative disc disease Kidney stones Pneumonia due to COVID-19 virus Surgical History H/O cervical spine surgery "x2" H/O lumbosacral spine surgery "x2" History of appendectomy History of arthroscopy of left knee History of cystoscopy History of fusion of cervical spine x2--limited from side to side and cant tip head back very far History of herniorrhaphy "x2" History of left inguinal hernia repair x3 History of lithotripsy History of lumbar discectomy History of repair of left rotator cuff History of tooth extraction Family History Mother Family hx of colon cancer Diabetes Father Healthy adult Brother Healthy adult Sister Healthy adult Other Colorectal cancer No family history of adverse response to anesthesia Denies family history of Prostate cancer Social History Smoking Status: Never smoker Second Hand Exposure: Yes (parents smoked); Hx Alcohol Use: No Hx Substance Use: No Preferred Language: Divehi Communication Ability: Effective Behaviour Support Teacher Required: No Beliefs That Will Affect Care: None Current Living Situation: Significant Other current occupational status: disabled Other Information That Helps Us Care for You: No Feels Safe at Home: Yes Safety Concerns: Feels Safe At This Time Assistive Devices: None Review of Systems Review of Systems: REVIEW OF SYSTEMS: Constitutional: (+) fever, sweats or chills Eyes: No diplopia, no worsening or blurred vision ENT: normal hearing, no trouble swallowing Respiratory: (+) dyspnea with rest and exertion, cough, No sputum Cardiovascular: No chest pain, tightness or palpitations Abdomen: No pain, nausea, vomiting, diarrhea or constipation Musculoskeletal: (+) back pain, calf pain, swelling Neurologic: No weakness, numbness/tingling, or balance problems Psychiatric: No anxiety or depression Skin: No rash or itch Physical Exam Physical Exam: PHYSICAL EXAM: General: awake, alert, no apparent distress Head: Normocephalic, atraumatic ENT: PERRL, EOMI, no pharyngeal exudate, mucous membranes moist Neuro: AAO x 3, speech clear and appropriate, strength intact bilaterally 5/5, sensation intact and equal all extremities and dermatones, no pronator drift Chest: tachypnea, equal rise and fall of the chest, no accessory muscle use, no heaves, Clear to auscultation bilaterally, on room air, Cardiac: Regular rate and rhythm, telelmetry reviewed, skin warm dry, cap refill <3 seconds, peripheral pulses +2 no JVD, no murmur, no edema GI: NABS x 4 quadrants, soft, nontender to palpation, no rebound, guarding or tenderness : Spontaneously voiding, no pain, no CVA tenderness, Extremities: Normal inspection, no peripheral edema or erythema, calfs nontender to palpation Psych: Normal mood and affect cits Skin: no rash or erythema Results & Data Results & Data ([facility]) Vital Signs (Past 12 Hours) Vital Signs Temp Pulse Resp BP Pulse Ox 12/05/20 18:00 80 17 144/96 H 93 12/05/20 17:30 81 17 151/106 H 95 12/05/20 17:20 83 16 96 12/05/20 17:10 81 14 12/05/20 17:00 91 H 25 H 142/83 H 12/05/20 16:50 78 20 96 12/05/20 16:40 96 12/05/20 16:30 83 15 127/84 93 12/05/20 16:22 82 18 96 12/05/20 16:20 81 19 95 12/05/20 16:12 83 12 153/87 H 96 12/05/20 16:02 36.3 C L 86 18 135/80 96 Laboratory Results Abnormal lab results 12/05/20 12/05/20 Range/Units 16:22 16:22 RDW Std Deviation 46.7 H (36.4-46.3) fL Lymph # (Auto) 3.51 H (1.2-3.4) K/uL Marshall # (Auto) 0.68 H (0.11-0.59) K/uL Immature Gran # (Auto) 0.05 H (0.00-0.02) K/uL Glucose 147 H (70-99) mg/dl Magnesium 2.5 H (1.8-2.4) mg/dl AST 62 H (15-37) U/L ALT 169 H (12-78) U/L Alkaline Phosphatase 179 H (45-117) U/L Globulin 4.1 H (2.5-4.0) gm/dl Diagnostic Findings Chest X-Ray 12/05/20 17:09 XR chest 1V portable CLINICAL HISTORY: Atypical chest pain COMPARISON STUDY: 10/25/2020 FINDINGS: The cardiac and mediastinal contours remain stable. There is no failure. There is no focal pulmonary consolidation. There are no pleural effusions.[ IMPRESSION: No active disease in the chest. Electronically signed by: Andres Adair M.D. 12/05/2020 5:[address] ANGIOGRAPHY OF THE CHEST, PULMONARY EMBOLUS PROTOCOL-12/01 CLINICAL HISTORY: Dyspnea COMPARISON STUDY: Chest CT October 25, 2020. TECHNIQUE: Following IV administration of 120 mL of Optiray, helical axial images of the chest were obtained utilizing the pulmonary embolus protocol. Maximal intensity projections and sagittal and coronal reformats were viewed on an independent 3D workstation. IV contrast was administered without complication. Automated exposure control was utilized for the study. A dose lowering technique was utilized adhering to the principles of ALARA. CT DOSE: 3299.78 mGy.cm FINDINGS: No central or lobar pulmonary emboli are identified. Segmental and subsegmental pulmonary arteries within the upper lobes are suboptimally assessed on this examination due to suboptimal opacification. There is no thoracic aortic dissection. There is no pericardial effusion. The enlarged lymph nodes on chest CT October 25, 2020 now normal size. Groundglass opacities shown on prior examination examination have nearly completely resolved. There are mild residual groundglass opacities. There is no pneumothorax or pleural effusion. The abdomen and pelvis will be reported separate. IMPRESSION: 1. No pulmonary emboli identified although segmental and subsegmental pulmonary arteries suboptimally assessed on this exam. 2. Near complete resolution of the groundglass opacities shown on CT of October 25, 2020. CT OF THE HEAD WITHOUT CONTRAST- 12/01 CLINICAL HISTORY: Headache. Evaluate for bleed. COMPARISON STUDY: No previous studies for comparison. TECHNIQUE: Helical axial images of the head were obtained without IV contrast. Automated exposure control was utilized for the study. A dose lowering technique was utilized adhering to the principles of ALARA. FINDINGS: No acute intracranial hemorrhage, midline shift or mass effect is present. The ventricular system is unremarkable. The basal cisterns are patent. No extra-axial collections are present. There are no findings to suggest acute dural sinus thrombosis or acute territorial infarct. No significant calvarial abnormalities are present. Visualized portions of the sinuses and mastoid air cells are clear. IMPRESSION: No acute intracranial findings. CT OF THE ABDOMEN AND PELVIS WITH CONTRAST- 12/01 CLINICAL HISTORY: Left lower quadrant abdominal pain. COMPARISON STUDY: CT of the abdomen and pelvis October 23, 2020. TECHNIQUE: Following IV administration of 120 mL of Optiray, axial images of the abdomen and pelvis were obtained from the lung bases to the proximal femurs. Images were reviewed in the axial, sagittal, and coronal planes. IV contrast was administered without complication. Automated exposure control was utilized for the study. A dose lowering technique was utilized adhering to the principles of ALARA. FINDINGS: No pneumatosis, free air or portal venous gas is present. There is probable hepatic steatosis. Mild splenomegaly is noted. The adrenal glands and pancreas are unremarkable. There is no biliary or pancreatic ductal dilatation. A few renal cysts are present. A few subcentimeter renal lesions are too small to characterize. There is no hydronephrosis or hydroureter. The caliber and wall thickness of small and large bowel are normal. Colonic diverticulosis is noted without evidence for acute diverticulitis. There is no evidence for a bowel obstruction. The appendix is not visualized. No acute fracture or suspicious lesion is identified within the visualized skeletal structures. Note is made of multiple mildly enlarged portacaval and ruben hepatis lymph nodes. Index ruben hepatis node on image 153 of 541 measures 1.4 cm in short axis diameter. These nodes were normal in size on prior CT. There is no pelvic lymphadenopathy. IMPRESSION: 1. No bowel obstruction. No bowel wall thickening. No acute inflammatory process. 2. Several mildly enlarged portacaval and ruben hepatis lymph nodes, a new finding since prior exam. These are nonspecific and a follow-up CT in 6 months is recommended. 3. Mild splenomegaly. ECG Additional Comments: Normal sinus rhythm Normal ECG When compared with ECG of 01-DEC-2020 06:45, Incomplete right bundle branch block is no longer Present Code Status & VTE Plan Code Status CODE: FULL VTE: SCD's, Lovenox VTE Prophylaxis Plan VTE Prophylaxis will be ordered: Yes Supervising Physician Co-Signing Physician Notes Attending Attestation - Pt seen/examined, chart reviewed, care plan d/w DUSTIN Bailey. I agree w/ the sherwood components of his documentation. 60yo male with COVID-19 in October 2020 presenting with recent fever, dyspnea, pleuritic chest pain. Has undergone a significant outpatient w/u for his new symptoms in recent days including Lyme testing, anaplasmosis testing, routine blood work, and recent CT chest/abd/pelvis on 12/01. CT chest with near-resolution of all previous infiltrates from his COVID pneumonia; no PE seen either. CT abd/pelvis with mild splenomegaly and mild intra-abdominal lymphadenopathy. During my assessment the patient was resting comfortably and denied current complaints. PMH, PSH, allergies, meds, sochx, famhx - reviewed VSS, afebrile gen - NAD, WD, WN neck - no JVD heart - RRR, s1 s2 lungs - CTA b/l abd - soft NT ND spleen tip palpable; liver not enlarged ext - no edema labs, imaging, EKG all reviewed A/P: 1. COVID-19 in 10/2020 - radiographically resolved. Uncertain if current symptoms represent "COVID long-haul" or new process. 2. fever, abnormal LFTs, splenomegaly - anaplasmosis? EBV, CMV? prior COVID? other? agree w/ anaplasmosis DNA, EBV titers, etc. 3. pleuritic chest pain/dyspnea - echo in am. Cardiology consult. CT chest from 12/01 reviewed (essentially normal). Serial troponins. Other plans per Ms Bailey. Yoel Koo MD PG Care Time/CCT Total # of Minutes Spent Total Time Spent with Patient: Total time spent is greater than 50% in coordination of care (as documented) at patient's floor/unit and/or counseling patient: Coding Level of Care Code 52554 OBS Care - Level 3 Diagnoses Ongoing symptomatic disease due to COVID-19 virus U07.1 SOB (shortness of breath) R06.02 Chest pain R07.9 Chest pain type: unspecified Fatty liver disease, nonalcoholic K76.0 Lymphadenopathy R59.1 Lyme disease A69.20 (1) Chest pain Chest pain type: unspecified Qualified Code(s): R07.9 - Chest pain, unspecified
[2020-12-05 19:33] LABS: C Reactive Protein 1.44 mg/dl (0-0.29); Creatine Kinase 134 U/L (39-308); INR 0.9 (0.9-1.1); Prothrombin Time 9.6 Seconds (9.0-12.0)
[2020-12-05] MEDS ORDERED: ONDANSETRON INJ 2 MG/ML 2 ML VIAL IV PRN (19:49)
[2020-12-05] MEDS ORDERED: ALBUTEROL 0.083% NEBU SOLN 3 ML VIAL NEB PRN (19:49)
[2020-12-05] MEDS ORDERED: ALBUTEROL HFA 8 GM INHALER INH PRN (19:49)
[2020-12-05] MEDS ORDERED: ACETAMINOPHEN 325 MG TAB PO PRN (19:49)
[2020-12-05] MEDS ORDERED: ENOXAPARIN INJ 40 MG/0.4 ML SYR SQ SCH (21:00)
[2020-12-05] MEDS: DOXYCYCLINE HYCLATE 100 MG CAP PO SCH (21:50)
[2020-12-06 04:50] LABS: Hematocrit (blood only) 41.7 % (42-52); Mean Corpuscular Hemoglobin 30.2 pg (25-34); Mean Corpuscular Hgb Conc 33.6 g/dL (32-36); Mean Corpuscular Volume 90.1 fL (80-100); Mean Platelet Volume 9.3 fL (7.4-10.4); Platelet Count 251 K/uL (130-400); RDW Coefficient of Variation 14.1 % (11.5-14.5); RDW Standard Deviation 46.2 fL (36.4-46.3); Red Blood Count 4.63 M/uL (4.7-6.1)
[2020-12-06 05:16] LABS: Alanine Aminotransferase 142 U/L (12-78); Albumin Level 3.4 gm/dl (3.4-5.0); Aspartate Aminotransferase 56 U/L (15-37); BUN Creatinine Ratio 14.3 (10-20); Bilirubin Direct 0.1 mg/dl (0-0.2); Blood Urea Nitrogen 14 mg/dl (7-18); Calcium 8.6 mg/dl (8.5-10.1); Carbon Dioxide 26 mmol/L (21-32); Chloride 103 mmol/L (98-107); Creatinine Clr Calc Pharmacy 107.9 ml/min; Est GFR (African American) 98.6 ml/min; Est GFR (Non-African American) 85.1 ml/min; Glucose 129 mg/dl (70-99); Magnesium 2.3 mg/dl (1.8-2.4); Potassium 3.5 mmol/L (3.5-5.1); Sodium 138 mmol/L (136-145)
[2020-12-06 05:21] LABS: Alkaline Phosphatase 150 U/L (45-117); Bilirubin,Total 0.5 mg/dl (0.2-1); Iron 85 mcg/dl (35-175); Total Iron Binding Capacity 235 mcg/dl (250-450); Total Protein 7.1 gm/dl (6.4-8.2); Transferrin 197 mg/dl (200-360); Troponin I < 0.015 ng/ml (0-0.045)
[2020-12-06 05:25] LABS: Basophils # (auto) 0.04 K/uL (0-0.2); Basophils % (auto) 0.5 %; Eosinophils # (auto) 0.14 K/uL (0-0.5); Eosinophils % (auto) 1.6 %; Immature Granulocytes # (auto) 0.08 K/uL (0.00-0.02); Immature Granulocytes % (auto) 0.9 %; Lymphocytes # (auto) 4.31 K/uL (1.2-3.4); Lymphocytes % (auto) 50.7 %; Monocytes # (auto) 0.53 K/uL (0.11-0.59); Monocytes % (auto) 6.2 %; Neutrophils % (auto) 40.1 %; RBC Morphology Unremarkable
--- NOTE | 2020-12-06 08:52 | Hospitalist Progress Note ---
Date of Service December 06, 2020 Assessment & Plan (1) Ongoing symptomatic disease due to COVID-19 virus: Patient as per HPI with ongoing dyspnea, fevers - His CT scan of his chest reviewed from 12/01-near resolution of ground glass opacities and CXR with no active process - Symptoms with improvement of albuterol - , crp 1.4 esr 40 - troponin is negative - ECHO pending - PFT's would be needed if cardiac workup remains negative - mild transaminitis, (2) SOB (shortness of breath): As above - Continue albuterol inhaler - albuterol nebulizers for symptoms uncontrolled with inh therapy or if needed in between (3) Chest pain: Associated with his dyspnea- ECG normal at this time - Continue to trend out - ECHO in the morning (4) Fatty liver disease, nonalcoholic: Unsure of significance with this following COVID long haul - Follow liver enzymes - Continue Doxy lyme IGm is positive awaiting confirmatory testing - SWAPNA, Hepatitis panels sent, iron, TIBC, and tranferrin (5) Lymphadenopathy: As above- remaining inflammatory process following COVID- other inflammatory biomarkers (6) Lyme disease: IGM postivie- pending confirmation -continue with Doxy. - Patietn re-educated on taking with full glass of water and remaining upright for 30 minutes following dose - Anaplasmosis smear negative- awaiting confirmation Admission and Anticipated Discharge Date Admission Date: December 05, 2020 Results & Data Results & Data ([facility]) Vital Signs (Past 12 Hours) Vital Signs Temp Pulse Pulse Resp BP Pulse Ox 12/06/20 08:12 97.7 F 82 16 122/82 94 12/06/20 03:48 98.2 F 72 20 125/78 93 12/05/20 23:27 82 PG Care Time/CCT Total # of Minutes Spent Total Time Spent with Patient: Total time spent is greater than 50% in coordination of care (as documented) at patient's floor/unit and/or counseling patient: Coding Diagnoses Ongoing symptomatic disease due to COVID-19 virus U07.1 SOB (shortness of breath) R06.02 Chest pain R07.9 Chest pain type: unspecified Fatty liver disease, nonalcoholic K76.0 Lymphadenopathy R59.1 Lyme disease A69.20 (1) Chest pain Chest pain type: unspecified Qualified Code(s): R07.9 - Chest pain, unspecified
[2020-12-06] MEDS: DOXYCYCLINE HYCLATE 100 MG CAP PO SCH (08:53)
[2020-12-06 09:32] LABS: Appearance Urine Clear (Clear); Bilirubin Urine Negative (Negative); Blood Urine Negative (Negative); Color Urine Dark Yellow; Glucose Urine UA Negative (Negative); Ketones Urine Negative (Negative); Leukocyte Esterase Urine Negative (Negative); Nitrite Urine Negative (Negative); Protein Urine Negative (Negative); Specific Gravity Urine 1.023 (1.000-1.030); Urobilinogen Urine Negative (Negative)
--- NOTE | 2020-12-06 11:12 | XCELERA ---
[id number]
--- NOTE | 2020-12-06 12:53 | Cardiology Consultation ---
Date of Consultation December 06, 2020 Assessment & Plan (1) Substernal chest pain: He has pleuritic chest pain. This is worse with deep inspiration and breathing, but a necessarily due to exertion. The symptoms have been present now for days to weeks. No objective evidence of cardiac ischemia. No history of cardiac ischemia. Normal LV function. No evidence of pericardial effusion or pericarditis. (2) SOB (shortness of breath): His shortness of breath is puzzling. His LV function appears normal. He is not appear to have hypovolemia or any evidence of pulmonary edema. Oxygenation normal at rest. Normal EKG and heart rate. No evidence of PE on recent scans. Unclear if this is related to his prior COVID-19 infection. I do not believe there is a cardiac cause for his significant dyspnea. History of Present Illness Reason for Consultation: Chest pain, dyspnea Requesting Physician: Delfino Attending Physician: Supa Saleh MD History of Present Illness Patient is a 60-year-old gentleman without a known history of cardiac disease who was diagnosed with COVID-19 pneumonia earlier this year. The patient's initial symptoms did involve a sense of dyspnea, but he was treated as an outpatient. The symptoms gradually improved but then became progressively worse over the last couple of weeks. The patient now has significant dyspnea with minor exertion such as walking or going to the bathroom. He does not describe associated dizziness or lightheadedness. He has not suffered syncope. He is not appear to have difficulty breathing when lying down although at nighttime he will often wake up and go sit in his recliner because he feels more comfortable. He does report a sense of pleuritic chest pain and chest heaviness overall. A week ago he had subjective fevers. No recent fevers. He has a sense of palpitations at time manifest by a rapid heartbeat. These occur with activity but not at rest. Allergies Allergy/AdvReac Type Severity Reaction Status Date / Time silodosin Allergy Severe SHORTNESS Verified 12/05/20 17:26 OF BREATH-"FELT LIKE HAVING A HEART ATTACK". hydrocodone Allergy Mild itching, Verified 12/05/20 17:26 tingling around mouth Home Medications Medication Instructions Recorded Confirmed Type doxycycline hyclate 100 mg tablet 100 mg PO BID #42 tab 12/02/20 12/05/20 Rx albuterol sulfate [Ventolin HFA] 2 puff INHALATION DIRECTED PRN 12/05/20 12/05/20 History pfjnlkr-[id number]-[id number] 1 tab PO DIRECTED PRN 12/05/20 12/05/20 History [Excedrin Migraine] ibuprofen [Advil] 600 mg PO Q6H PRN 12/05/20 12/05/20 History Patient History Medical History Degenerative disc disease Kidney stones Pneumonia due to COVID-19 virus Surgical History H/O cervical spine surgery "x2" H/O lumbosacral spine surgery "x2" History of appendectomy History of arthroscopy of left knee History of cystoscopy History of fusion of cervical spine x2--limited from side to side and cant tip head back very far History of herniorrhaphy "x2" History of left inguinal hernia repair x3 History of lithotripsy History of lumbar discectomy History of repair of left rotator cuff History of tooth extraction Family History Mother Family hx of colon cancer Diabetes Father Healthy adult Brother Healthy adult Sister Healthy adult Other Colorectal cancer No family history of adverse response to anesthesia Denies family history of Prostate cancer Social History Smoking Status: Never smoker Second Hand Exposure: Yes (parents smoked); Hx Alcohol Use: No Hx Substance Use: No Preferred Language: Lao Communication Ability: Effective Product Line Manager Required: No Beliefs That Will Affect Care: None Current Living Situation: Significant Other current occupational status: disabled Other Information That Helps Us Care for You: No Feels Safe at Home: Yes Safety Concerns: Feels Safe At This Time Assistive Devices: None Review of Systems Review of Systems: All systems reviewed & are unremarkable except as noted in HPI & below Physical Exam Physical Exam: The patient is alert and oriented. Mood and affect appeared normal. He answered all questions appropriately. HEENT: Pupils are equal and reactive to light and accommodation. Extraocular movements are intact. The sclerae are anicteric. Neuro: Cranial nerves intact Neck: Patient's neck is supple. He has palpable carotid pulses bilaterally without bruits on auscultation. There is no evidence of jugular venous distention. The thyroid is not enlarged. Lungs: Clear to auscultation bilaterally. He has good air movement without use of accessory muscles. No rales wheezes or rhonchi. Cardiac: Heart demonstrates a regular rate and rhythm. Normal S1 and S2. No murmurs on examination. Pulses: The patient has palpable radial pulses bilaterally that are equal in intensity Extremities: There was no evidence of hypoperfusion. There is no cyanosis or clubbing. There is no edema. Skin: I did not appreciate any rashes on examination today. Results & Data ([facility]) Vital Signs (Past 12 Hours) Vital Signs Temp Pulse Pulse Resp BP BP Pulse Ox 12/06/20 11:36 36.5 C 80 16 128/80 92 12/06/20 10:06 77 12/06/20 08:12 36.5 C 82 16 122/82 94 12/06/20 03:48 36.8 C 72 20 125/78 93 Laboratory Results Abnormal Lab Results 12/05/20 12/05/20 12/05/20 16:22 16:22 16:22 WBC 7.44 RBC 5.10 Hgb 15.4 Hct 46.4 MCV 91.0 MCH 30.2 MCHC 33.2 RDW Std Deviation 46.7 H RDW Coeff of Melody 14.0 Plt Count 288 MPV 9.4 Immature Gran % (Auto) 0.7 Neut % (Auto) 41.2 Lymph % (Auto) 47.2 [place] % (Auto) 9.1 Eos % (Auto) 1.1 Baso % (Auto) 0.7 Neut # (Auto) 3.07 Lymph # (Auto) 3.51 H [place] # (Auto) 0.68 H Eos # (Auto) 0.08 Baso # (Auto) 0.05 Immature Gran # (Auto) 0.05 H RBC Morphology ESR PT 9.6 INR 0.9 Sodium 138 Potassium 3.5 Chloride 105 Carbon Dioxide 24 Anion Gap 9.0 BUN 14 Creatinine 0.94 Est Cr Clr Drug Dosing 110.1 Est GFR ( Amer) 102.4 Est GFR (Non-Af Amer) 88.4 BUN/Creatinine Ratio 14.8 Glucose 147 H Calcium 9.4 Magnesium 2.5 H Iron TIBC Transferrin Total Bilirubin 0.6 Direct Bilirubin AST 62 H ALT 169 H Alkaline Phosphatase 179 H Total Creatine Kinase 134 Troponin I < 0.015 C-Reactive Protein 1.44 H NT-Pro-B Natriuret Pep 15 Total Protein 8.0 Albumin 3.9 Globulin 4.1 H Albumin/Globulin Ratio 1.0 Urine Color Urine Appearance Urine pH Ur Specific [place] Urine Protein Urine Glucose (UA) Urine Ketones Urine Blood Urine Nitrite Urine Bilirubin Urine Urobilinogen Ur Leukocyte Esterase Anaplasma Smear See Comment COVID-19 Eval Order SARS-CoV-2 (PCR) Hepatitis C Antibody 12/05/20 12/05/20 12/05/20 17:23 17:23 20:01 WBC RBC Hgb Hct MCV MCH MCHC RDW Std Deviation RDW Coeff of Melody Plt Count MPV Immature Gran % (Auto) Neut % (Auto) Lymph % (Auto) [place] % (Auto) Eos % (Auto) Baso % (Auto) Neut # (Auto) Lymph # (Auto) [place] # (Auto) Eos # (Auto) Baso # (Auto) Immature Gran # (Auto) RBC Morphology ESR 40 H PT INR Sodium Potassium Chloride Carbon Dioxide Anion Gap BUN Creatinine Est Cr Clr Drug Dosing Est GFR ( Amer) Est GFR (Non-Af Amer) BUN/Creatinine Ratio Glucose Calcium Magnesium Iron TIBC Transferrin Total Bilirubin Direct Bilirubin AST ALT Alkaline Phosphatase Total Creatine Kinase Troponin I C-Reactive Protein NT-Pro-B Natriuret Pep Total Protein Albumin Globulin Albumin/Globulin Ratio Urine Color Urine Appearance Urine pH Ur Specific [place] Urine Protein Urine Glucose (UA) Urine Ketones Urine Blood Urine Nitrite Urine Bilirubin Urine Urobilinogen Ur Leukocyte Esterase Anaplasma Smear COVID-19 Eval Order Covid19 at [facility] SARS-CoV-2 (PCR) NEGATIVE Hepatitis C Antibody 12/05/20 12/06/20 12/06/20 22:26 04:07 04:07 WBC 8.50 RBC 4.63 L Hgb 14.0 Hct 41.7 L MCV 90.1 MCH 30.2 MCHC 33.6 RDW Std Deviation 46.2 RDW Coeff of Melody 14.1 Plt Count 251 MPV 9.3 Immature Gran % (Auto) 0.9 Neut % (Auto) 40.1 Lymph % (Auto) 50.7 [place] % (Auto) 6.2 Eos % (Auto) 1.6 Baso % (Auto) 0.5 Neut # (Auto) 3.40 Lymph # (Auto) 4.31 H [place] # (Auto) 0.53 Eos # (Auto) 0.14 Baso # (Auto) 0.04 Immature Gran # (Auto) 0.08 H RBC Morphology Unremarkable ESR PT INR Sodium 138 Potassium 3.5 Chloride 103 Carbon Dioxide 26 Anion Gap 9.0 BUN 14 Creatinine 0.97 Est Cr Clr Drug Dosing 107.9 Est GFR ( Amer) 98.6 Est GFR (Non-Af Amer) 85.1 BUN/Creatinine Ratio 14.3 Glucose 129 H Calcium 8.6 Magnesium 2.3 Iron 85 TIBC 235 L Transferrin 197 L Total Bilirubin 0.5 Direct Bilirubin 0.1 AST 56 H ALT 142 H Alkaline Phosphatase 150 H Total Creatine Kinase Troponin I < 0.015 < 0.015 C-Reactive Protein NT-Pro-B Natriuret Pep Total Protein 7.1 Albumin 3.4 Globulin Albumin/Globulin Ratio Urine Color Urine Appearance Urine pH Ur Specific [place] Urine Protein Urine Glucose (UA) Urine Ketones Urine Blood Urine Nitrite Urine Bilirubin Urine Urobilinogen Ur Leukocyte Esterase Anaplasma Smear COVID-19 Eval Order SARS-CoV-2 (PCR) Hepatitis C Antibody 12/06/20 12/06/20 04:07 09:10 WBC RBC Hgb Hct MCV MCH MCHC RDW Std Deviation RDW Coeff of Melody Plt Count MPV Immature Gran % (Auto) Neut % (Auto) Lymph % (Auto) [place] % (Auto) Eos % (Auto) Baso % (Auto) Neut # (Auto) Lymph # (Auto) [place] # (Auto) Eos # (Auto) Baso # (Auto) Immature Gran # (Auto) RBC Morphology ESR PT INR Sodium Potassium Chloride Carbon Dioxide Anion Gap BUN Creatinine Est Cr Clr Drug Dosing Est GFR ( Amer) Est GFR (Non-Af Amer) BUN/Creatinine Ratio Glucose Calcium Magnesium Iron TIBC Transferrin Total Bilirubin Direct Bilirubin AST ALT Alkaline Phosphatase Total Creatine Kinase Troponin I C-Reactive Protein NT-Pro-B Natriuret Pep Total Protein Albumin Globulin Albumin/Globulin Ratio Urine Color Dark Yellow Urine Appearance Clear Urine pH 5.0 Ur Specific [place] 1.023 Urine Protein Negative Urine Glucose (UA) Negative Urine Ketones Negative Urine Blood Negative Urine Nitrite Negative Urine Bilirubin Negative Urine Urobilinogen Negative Ur Leukocyte Esterase Negative Anaplasma Smear COVID-19 Eval Order SARS-CoV-2 (PCR) Hepatitis C Antibody Neg Diagnostic Findings Chest x-ray obtained yesterday was normal Echocardiogram performed 12/06/2020: Normal LV systolic function. Mild LVH. No significant valvular heart disease. ECG Additional Comments: EKG obtained at the time admission was normal. PG Care Time/CCT Total # of Minutes Spent Total Time Spent with Patient: Total time spent is greater than 50% in coordination of care (as documented) at patient's floor/unit and/or counseling patient: Coding Level of Care Code 16911 Office/OBS Consult Lvl 4 Diagnoses Substernal chest pain R07.2 SOB (shortness of breath) R06.02
--- NOTE | 2020-12-06 16:57 | Electrocardiogram Report ---
Test Reason : Blood Pressure : / mmHG Vent. Rate : 079 BPM Atrial Rate : 079 BPM P-R Int : 154 ms QRS Dur : 108 ms QT Int : 392 ms P-R-T Axes : 021 005 014 degrees QTc Int : 449 ms Normal sinus rhythm Normal ECG When compared with ECG of 01-DEC-2020 06:45, Incomplete right bundle branch block is no longer Present Confirmed by Adolfo Weeks ([id number]) on 12/06/2020 4:56:56 PM Referred By: Ayaan Zepeda Confirmed By:Emmanuel Weeks
--- NOTE | 2020-12-06 19:07 | Discharge Summary ---
Date of Service December 06, 2020 Admission HPI Per Admitting Provider 60 YOM with past medical history of obesity, shingles, COVID-19. Patient comes to the EMD today for continued dyspnea. The patient was originally diagnosed with COVID on Oct 23 2020, had mild hypoxemia was treated with Decadron at home and did not require hospitalization. He has been continuing to [place] his breathlessness and has worked closely with his PCP. He came to the EMD on 12/01/20 chest pressure, dyspnea, fever, headache, sweats, and continued elevated biomarkers(CRP, D-dimer, LFT). He had a CTA of the chest that did not show pulmonary embolism, had CT of the abdomen/pelvis with mildly enlarge [place]/ruben hepatis lymph nodes and mild splenomegaly. Doppler of the legs without DVT. He had a lyme done that was positive IGM ab that was positive and was started on doxycycline 100 mg PO BID, he has had 4 doses of this and has not noted effects. He continues to have sweats at night. He had some chest pressure last night that was relieved with 3 puffs of his albuterol inhaler, but he said just felt like someone just squeezing him. [place] the post-office [place] other day and made it about 1/2 block and had to turn around due to breathlessness. He is winded while talking with him as well. He came to the EMD for continued workup to evaluate cardiac nature of his dyspnea through his PCP. His COVID test is negative on 12/01 and today 12/05 Principal Diagnosis dyspnea pleuritic chest pain Discharge Exam The patient appeared well Vital signs as documented. Lungs are clear to auscultation and appear unlabored Cardiac exam, Rhythm is regular.. No murmurs, rubs or gallops. Abdominal exam reveals normal bowel sounds, soft non tender, no masses Extremities are nonedematous and both pedal pulses are normal. Neurologic exam is alert and oriented, no focal loss of strength or sensation Skin is without bruises or rashes Psychologically is without concerns for anxiety or depression. Discharge Data Allergies Allergy/AdvReac Type Severity Reaction Status Date / Time silodosin Allergy Severe SHORTNESS Verified 12/05/20 17:26 OF BREATH-"FELT LIKE HAVING A HEART ATTACK". hydrocodone Allergy Mild itching, Verified 12/05/20 17:26 tingling around mouth Consultations 12/05/20 17:11 ED Decision to Admit Stat 12/05/20 19:49 Consult Cardiology Routine Hospital Course (1) Ongoing symptomatic disease due to COVID-19 virus: Patient as per HPI with ongoing dyspnea, fevers - His CT scan of his chest reviewed from 12/01-near resolution of ground glass opacities and CXR with no active process - Symptoms with improvement of albuterol - , crp 1.4 esr 40 - troponin is negative - ECHO normal - PFT's would be considered as well as outpt stress testing - mild transaminitis persists (2) SOB (shortness of breath): - Continue albuterol inhaler - (3) Chest pain: Associated with his dyspnea- ECG normal at this time - ECHO normal (4) Fatty liver disease, nonalcoholic: Unsure of significance with this following COVID long haul - Follow liver enzymes still maybe covid affect - Continue Doxy lyme IGm is positive awaiting confirmatory testing - SWAPNA, Hepatitis panels pending except hep c is negative iron normal (5) Lymphadenopathy: As above- remaining inflammatory process following COVID- (6) Lyme disease: IGM postivie- pending confirmation -continue with Doxy. - Patietn re-educated on taking with full glass of water and remaining upright for 30 minutes following dose - Anaplasmosis smear negative- awaiting confirmation dna is a send out Total Time Total Time Spent Total Time Spent (In Minutes): It required greater than 30 minutes to prepare this patient for discharge Discharge Plan Discharge Items Patient Disposition: Home - Self-Care Reason For Visit: DYSPNEA Discharge Diagnosis: dyspnea pleuritic chest pain Activity: Resume your previous activity Activity Comment: gradually increase activity Non-emergency contact: Primary Care Provider Call non-emergency contact if: you have any medication questions, your symptoms worsen and you have a fever Follow-up/Referrals: Ayaan Zepeda MD [Primary Care Provider] - Diet: Regular Addtl Attending Provider Instructions: Although the exact cause of your breathlessness was yet to be found we will recommend continuing treatment for your Lyme disease positive test until the confirmatory test returns. This will include your antibiotics twice a day. Based upon your response to inhaler improving her symptoms a prescription will be renewed for albuterol inhaler. Hopefully will have the Lyme test/other tickborne illness test response back before you go to infectious disease appointment at [place] this coming week. Additionally Dr. Zepeda can help arrange an outpatient pulmonary function test. This certainly still could be some long-lasting effects of your recent Covid infection but to reassure you there is no abnormality seen to suggest ongoing worsening Covid infection on any of your imaging studies. Your echocardiogram was interpreted by Dr. Weeks to be unrevealing and after interview Dr. Weeks does not feel we should pursue active stress testing at this time I do understand you are frustrated with not being able to exert yourself because of your dyspnea I can only encourage you to continue to listen to your body and pace her self with regard to your exertion. Please keep in touch with your primary care provider and allergies commonsense if you feel ill that is worsening in any way please return back to the hospital and we will gladly readmit you Pending Studies at Discharge: Yes Stand-Alone Forms: My [facility] [employer], Smoking Cessation Medications and DC Order Prescriptions: Continued doxycycline hyclate 100 mg tablet 100 mg PO BID Qty: 42 RF: 0 ibuprofen [Advil] 200 mg Tablet 600 mg PO Q6H PRN (Reason: Pain) RF: 0 Excedrin Migraine 250-250-65 mg Tablet 1 tab PO DIRECTED PRN (Reason: Migraine Headache) RF: 0 albuterol sulfate [Ventolin HFA] 90 mcg/actuation Hfa Aerosol Inhaler 2 puff INHALATION DIRECTED PRN (Reason: Shortness Of Breath) Qty: 1 RF: 2 Discharge Orders: Discharge Order (Routine); Ordered 12/06/20 Ordered By: Supa Saleh Admission Data Admit Date/Time: 12/05/20 18:45 Attending Provider: Supa Saleh Admit Provider: Yoel Koo Primary Care Provider: Ayaan Zepeda Other Providers: Yoel Koo ; Ayaan Weeks Other Interventions: Discharge Summary Assessment (RN) Last Done: 12/06/20 16:42 Coding Level of Care Code D/C Day Management >30 mins Diagnoses Ongoing symptomatic disease due to COVID-19 virus U07.1 SOB (shortness of breath) R06.02 Chest pain R07.9 Chest pain type: unspecified Fatty liver disease, nonalcoholic K76.0 Lymphadenopathy R59.1 Lyme disease A69.20
[2020-12-09 05:41] LABS: HBSAG NON-REACTIVE (NON-REACTIVE); Hepatitis A Antibody Total REACTIVE (NON-REACTIVE); Hepatitis B Core Antibody IgM NON-REACTIVE (NON-REACTIVE); Hepatitis BE Antibody Nonreactive; Hepatitis BE Antigen Nonreactive
[2020-12-11 15:52] LABS: Anti Nuclear Antibody Screen NEGATIVE (NEGATIVE); Ehrlichia chaff IgG Ab <1:64 (<1:64); Ehrlichia chaff IgM Ab <1:20 (<1:20)
== END 2020-12-06 17:57 | disposition home or self-care (01) ==
LOC: ED 15:57 → 2W 18:45 → SUATTDRO 18:45 → INTOOBSV 18:45 → 2W 19:36
DX: Z88.8 Allergy status to other drugs, medicaments and biological substances; R06.02 Shortness of breath; K76.0 Fatty (change of) liver, not elsewhere classified; Z79.51 Long term (current) use of inhaled steroids; A69.20 Lyme disease, unspecified; Z79.82 Long term (current) use of aspirin; R07.2 Precordial pain; Z79.899 Other long term (current) drug therapy; Z88.5 Allergy status to narcotic agent; U07.1 COVID-19; R59.0 Localized enlarged lymph nodes

== ENCOUNTER 2022-07-08 10:22 | Inpatient (IN) ==
[2022-07-08] MEDS ORDERED: HYDROmorphone INJ 1 MG/ML SYRINGE IV STA (10:49)
[2022-07-08] MEDS ORDERED: ONDANSETRON INJ 2 MG/ML 2 ML VIAL IV STA (10:49)
--- NOTE | 2022-07-08 10:52 | Emergency Department Note ---
Impression & Plan Lumbar radiculopathy, Back pain, Paresthesia ED Provider Note NAME: LB ANGULO AGE: 62 SEX: M : 1960 ARRIVES VIA: Walk-In INFORMANT: Patient ED PROVIDER(S): Francis Ceja DO CHIEF COMPLAINT: back pain and weakness HPI: Patient is a 62-year-old male who presents to the ER for back pain. He notes that he has been having worsening back pain for the past month. He has had previous spinal surgery by Dr. Diego. He has been following with Dr. Norris's office and had an injection a month ago and then repeated yesterday. Since yesterday he has had significant worsening of the pain. He has tingling on his bilateral anterior thighs. He notes his legs feel weaker. He can no longer walk due to the pain. He is urinating and moving his bowels without difficulty. No chest pain or shortness of breath. No belly pain, nausea, vomiting, or diarrhea. He notes he did pass out today as he went to get up and felt very lightheaded and passed out. He did have some dizziness yesterday. No weakness or numbness in the arms. PAST MEDICAL HISTORY:See Below PAST SURGICAL HISTORY:See Below FAMILY HISTORY:See Below SOCIAL HISTORY:See Below HOME MEDICATIONS:See Below ALLERGIES:See Below VITALS:See Below PHYSICAL EXAMINATION: GENERAL: Sitting up in bed, alert, well appearing, well nourished, no distress, non-toxic EYE EXAM: normal conjunctiva. OROPHARYNX: no exudate, no erythema, lips, buccal mucosa, and tongue normal and mucous membranes are moist NECK: supple, no nuchal rigidity, no adenopathy, non-tender LUNGS: Clear to auscultation. Normal chest wall mechanics HEART: no murmurs, S1 normal and S2 normal ABDOMEN: abdomen soft, non-tender, normo-active bowel sounds, no masses, no rebound or guarding. BACK: Back is symmetrical on inspection and there is no deformity, no midline tenderness, no CVA tenderness. SKIN: no rashes and no bruising UPPER EXTREMITIES: upper extremities are grossly normal. LOWER EXTREMITIES: Flexion and extension of the hips, knees, ankles, and EHL 5/5 bilaterally. Gross sensation is intact. DPs are 2/4 bilateral. Patellar and Achilles reflexes are 1/4 bilateral NEURO EXAM: Normal sensorium, cranial nerves II-XII grossly intact, normal speech, no gross weakness of arms, no gross weakness of legs. MEDICAL DECISION MAKING: Patient is a 62-year-old male referred in for severe back pain following having injections yesterday. IV was established blood work was obtained. He follows with Dr. Diego. External records were reviewed. Labs show no significant leukocytosis or anemia. BMP along with LFTs bilirubin was unremarkable. Troponin was negative. COVID unremarkable. MRI of the lumbar spine showed no a cute pathology. Discussed case with Dr. Edwards has patient had received 3 doses of IV narcotics in combination with Toradol and Decadron still has significant pain. Agreed with observation. Discussed with Dr. Bates for admission and work-up and treatment. external records were reviewed. Triage Nursing notes reviewed. Limited review of prior medical records performed Vital Signs: reviewed and remarkable for no significant abnormalities Differential diagnosis: Differential diagnosis includes etiologies such as vasovagal event, infection, hypoglycemia, electrolyte abnormalities, cardiac sources, intracerebral event, toxicologic, neurologic, as well as others were entertained. ER treatment provided: See below Diagnostics interpreted by me include EKG and cardiac monitoring as listed below: -Cardiac Monitoring: An order was placed for continuous cardiac monitoring. The monitor shows a rate of 80 with sinus rhythm. -ECG: none -Laboratory studies:Interpreted by me as stated above in MDM and shown below. Imaging studies: Xrays: As interpreted by me:none CTs show: none MR: Lumbar spine showed no acute pathology Consultation(s): Discussed with Dr. Gillis in regards to presentation work-up treatment and MRI findings. Agrees with observation. Discussed with the hospitalist as described above Procedures:none Critical Care: None Past Med/Surg History Medical History Degenerative disc disease Hyperlipidemia Kidney stones Lumbar radiculopathy Meralgia paresthetica of both lower extremities Numbness and tingling of leg Pneumonia due to COVID-19 virus Type II diabetes mellitus Surgical History H/O cervical spine surgery "x2" H/O lumbosacral spine surgery "x2" History of appendectomy History of arthroscopy of left knee History of cystoscopy History of fusion of cervical spine x2--limited from side to side and cant tip head back very far History of herniorrhaphy "x2" History of left inguinal hernia repair x3 History of lithotripsy History of lumbar discectomy History of repair of left rotator cuff History of tooth extraction Family History Mother Family hx of colon cancer Diabetes Father Healthy adult Brother Healthy adult Sister Healthy adult Other Colorectal cancer No family history of adverse response to anesthesia Denies family history of Prostate cancer Social History (Updated 06/02/22 @ 14:24 by EULALIO Morrissey) Smoking Status: Never smoker Second Hand Exposure: Yes (parents smoked); Hx Alcohol Use: No Hx Substance Use: No Preferred Language: [place] Communication Ability: Effective Assistant Women'S Rowing Coach Required: No Beliefs That Will Affect Care: None Current Living Situation: Significant Other current occupational status: disabled Feels Safe at Home: Yes Assistive Devices: None Allergies Allergies Allergy/AdvReac Type Severity Reaction Status Date / Time silodosin Allergy Severe SHORTNESS Verified 06/02/22 14:16 OF BREATH-"FELT LIKE HAVING A HEART ATTACK". hydrocodone Allergy Mild itching, Verified 06/02/22 14:16 tingling around mouth Home Meds Previous Rx's Medication Instructions Recorded metformin 500 mg tablet,extended 500 mg PO DAILY #180 tabs 01/26/22 release 24 hr rosuvastatin 5 mg tablet 5 mg PO DAILY #90 tabs 01/26/22 cyclobenzaprine 10 mg tablet 10 mg PO TID PRN muscle spasm #30 05/23/22 tabs prednisone 10 mg tablets in a dose See Rx Instructions PO .COMPLEX 05/23/22 pack #21 ea oxycodone 5 mg tablet 5 mg PO Q4H PRN pain #30 tabs 06/02/22 Results & Data (ED) Vital Signs Vital Signs - 24 hr 07/08/22 10:29 07/08/22 11:00 07/08/22 11:09 Temperature 36.5 C Temperature Source Oral Pulse Rate 81 Pulse Rate [Apical] 79 Pulse Rhythm Regular Pulse Rhythm [Apical] Pulse Strength Normal Pulse Strength [Apical] Respiratory Rate 18 16 Respiratory Effort / Characteristics Non-Labored Spontaneous Respiratory Depth Normal Normal Respiratory Pattern Regular Blood Pressure 124/86 Blood Pressure [Left Arm] 133/95 Blood Pressure Mean 98 Blood Pressure Mean [Left Arm] 107 Blood Pressure Position Sitting Blood Pressure Position [Left Arm] Pulse Oximetry 98 95 96 Oxygen Delivery Method Room Air Room Air Sepsis Recent Fever Within 48 Hours No Sepsis New/Unexplained Change in Mental Status No Sepsis Action Taken by Nursing No Action Required 07/08/22 12:45 Temperature Temperature Source Pulse Rate Pulse Rate [Apical] 87 Pulse Rhythm Pulse Rhythm [Apical] Regular Pulse Strength Pulse Strength [Apical] Normal Respiratory Rate 20 Respiratory Effort / Characteristics Non-Labored Spontaneous Respiratory Depth Normal Respiratory Pattern Regular Blood Pressure Blood Pressure [Left Arm] 137/94 Blood Pressure Mean Blood Pressure Mean [Left Arm] 108 Blood Pressure Position Blood Pressure Position [Left Arm] Sitting Pulse Oximetry 94 Oxygen Delivery Method Room Air Sepsis Recent Fever Within 48 Hours Sepsis New/Unexplained Change in Mental Status Sepsis Action Taken by Nursing Laboratory Data 07/08/22 11:00 07/08/22 11:00 Lab Results 07/08/22 07/08/22 07/08/22 Range/Units 11:00 11:00 11:00 WBC 7.38 (4.8-10.8) K/ul RBC 4.98 (4.63-6.08) M/uL Hgb 15.1 (14.0-18.0) g/dl Hct 45.2 (40.1-51.0) % MCV 90.8 (80.0-100.0) fL MCH 30.3 (25.0-34.0) pg MCHC 33.4 (32.0-36.0) g/dL RDW Std Deviation 45.2 (36.4-46.3) fL RDW Coeff of Melody 13.7 (11.5-14.5) % Plt Count 232 (130-400) K/uL MPV 9.3 L (9.4-12.4) fL Immature Gran % (Auto) 0.4 % Neut % (Auto) 59.0 % Lymph % (Auto) 32.5 % Jenkins % (Auto) 6.6 % Eos % (Auto) 1.1 % Baso % (Auto) 0.4 % Neut # (Auto) 4.35 (1.4-6.5) K/uL Lymph # (Auto) 2.40 (1.2-3.4) K/uL Jenkins # (Auto) 0.49 (0.24-0.82) K/uL Eos # (Auto) 0.08 (0-0.50) K/uL Baso # (Auto) 0.03 (0-0.2) K/uL Immature Gran # (Auto) 0.03 H (0.00-0.02) K/uL Sodium 139 (136-145) mmol/L Potassium 4.0 (3.5-5.1) mmol/L Chloride 106 (98-107) mmol/L Carbon Dioxide 27 (21-32) mmol/L Anion Gap 6 (3-11) BUN 11 (6-23) mg/dl Creatinine 0.86 (0.6-1.4) mg/dl Est Cr Clr Drug Dosing 113.3 ml/min Est GFR ( Amer) 108.5 ml/min Est GFR (Non-Af Amer) 93.6 ml/min BUN/Creatinine Ratio 12.8 (10-20) Glucose 99 (70-99(Fasting)) mg/dl Calcium 9.1 (8.5-10.1) mg/dl Total Bilirubin 0.6 (0.2-1.0) mg/dl AST 18 (13-39) U/L ALT 26 (7-52) U/L Alkaline Phosphatase 77 (34-104) U/L Troponin I High Sens 4.5 (0-20) pg/ml Total Protein 7.3 (6.0-8.3) gm/dl Albumin 4.4 (3.4-5.0) gm/dl Globulin 2.9 (2.5-4.0) gm/dl Albumin/Globulin Ratio 1.5 (0.9-2) SARS-CoV-2, RNA, NAAT NEGATIVE (NEGATIVE) Administered Medications Discontinued Medications Hydromorphone HCl (Hydromorphone Inj 1 Mg/Ml Syringe) 1 mg IV NOW STA Stop: 07/08/22 10:50 Last Admin: 07/08/22 11:08 Dose: 1 mg Documented By: MILES Hydromorphone HCl (Hydromorphone Inj 0.5 Mg/0.5 Ml Syr) 0.5 mg IV NOW STA Stop: 07/08/22 12:34 Last Admin: 07/08/22 12:43 Dose: 0.5 mg Documented By: PATI Ondansetron HCl (Ondansetron Inj 2 Mg/Ml 2 Ml Vial) 4 mg IV NOW STA Stop: 07/08/22 10:50 Last Admin: 07/08/22 11:08 Dose: 4 mg Documented By: KV Imaging Data Radiologist's Impression: Lumbar Spine MRI 07/08/22 10:48 MR lumbar spine wo con CLINICAL HISTORY: 62 years-old Male with injection back pain and weakness. Subacute low back pain with prior lumbar spine surgery. COMPARISON: MRI lumbar spine 06/04/2022. TECHNIQUE: Multiplanar, multi sequence MRI of the lumbar spine was performed without intravenous contrast. FINDINGS: Timing Inspector localizer images demonstrate no gross extraspinal abnormality. Partially imaged 1.6 cm cystic structure of the left abdomen suggestive of a renal cyst. No abdominal aortic aneurysm. Conus medullaris terminates at the T12-L1 level. Signal within the imaged thoracic spinal cord is within normal limits. No acute fracture, subluxation, endplate erosion or marrow replacing process. Mostly mild multilevel intervertebral disc space narrowing with disc desiccation at L2-L3 through L5-S1. Mostly mild multilevel spondylitic spurring with moderate facet arthrosis. Prior left L5-S1 hemilaminectomy. T12-L1: No central canal or neural foraminal stenosis. Unchanged. L1-L2: No central canal or neural foraminal stenosis. Unchanged. L2-L3: No central canal or neural foraminal stenosis. Unchanged. L3-L4: No central canal or neural foraminal stenosis. Unchanged. L4-L5: Small posterior annular disc bulge eccentric to the right lateral recess. There is abutment without displacement of the right L5 nerve root. Ligamentum flavum thickening with moderate facet arthrosis. Moderate left with mild right neural foraminal narrowing appears unchanged. L5-S1: Mild spondylitic spurring. Posterior annular disc bulge with small central disc protrusion and annular fissure redemonstrated with possible abutmen t of the left S1 nerve root. Ligamentum flavum thickening with moderate facet arthrosis. Minimal left greater than right neural foraminal narrowing. The central canal is patent. Unchanged. IMPRESSION: 1. Stable exam compared to the MRI lumbar spine study obtained 06/04/2022. 2. No acute fracture or marrow edema. 3. Mild intervertebral disc space narrowing with moderate facet arthrosis as above. ACT 112: Negative or not required by law. The above report was generated using voice recognition software. It may contain grammatical, syntax or spelling errors. Dictated: 07/08/2022 12:26 PM Transcribed: 07/08/2022 12:43 PM Elizabeth [id number] [facility]_Jess Electronically signed by: Kai Juarez M.D. 07/08/2022 1:09 PM Chest X-Ray 07/08/22 10:52 XR chest 1V portable CLINICAL HISTORY: scynope TECHNIQUE: Single frontal radiograph of the chest was obtained. Comparison: Comparison is made to chest radiograph 06/03/2021 FINDINGS: No lines and tubes are seen. The cardiomediastinal silhouette is normal. The lungs are clear. No evidence of pleural effusion or pneumothorax. IMPRESSION: No acute chest disease. ACT 112: Negative or not required by law. Electronically signed by: Rubén Shore M.D. 07/08/2022 12:18 PM Discharge Plan Visit Data Chief Complaint: Back Injury/Pain Stated Complaint: BACK PAIN, LEG WEAKNESS, PASSING OUT ED Provider: Francis Ceja Discharge Problem: Lumbar radiculopathy, Back pain, Paresthesia Forms Stand Alone Forms: [facility] Prescriptions Prescriptions: No Action prednisone 10 mg tablets,dose pack See Rx Instructions PO .COMPLEX Qty: 21 0RF Rx Instructions: Take 60 mg p.o. x1 day, 50 mg p.o. x1 day, 40 mg p.o. x1 day, 30 mg p.o. x1 day, 20 mg p.o. x 1 day, then 10mg p.o. x one day, then stop cyclobenzaprine 10 mg tablet 10 mg PO TID PRN (Reason: muscle spasm) Qty: 30 0RF oxycodone 5 mg tablet 5 mg PO Q4H PRN (Reason: pain) Qty: 30 0RF metformin 500 mg tablet extended release 24 hr 500 mg PO DAILY Qty: 180 2RF rosuvastatin 5 mg tablet 5 mg PO DAILY Qty: 90 3RF Referrals Referrals: Adolfo Zepeda MD [Primary Care Provider] -
[2022-07-08 11:10] LABS: Basophils # (auto) 0.03 K/uL (0-0.2); Basophils % (auto) 0.4 %; Eosinophils # (auto) 0.08 K/uL (0-0.50); Eosinophils % (auto) 1.1 %; Hematocrit (blood only) 45.2 % (40.1-51.0); Hemoglobin 15.1 g/dl (14.0-18.0); Immature Granulocytes # (auto) 0.03 K/uL (0.00-0.02); Immature Granulocytes % (auto) 0.4 %; Lymphocytes % (auto) 32.5 %; Mean Corpuscular Hemoglobin 30.3 pg (25.0-34.0); Mean Corpuscular Hgb Conc 33.4 g/dL (32.0-36.0); Mean Corpuscular Volume 90.8 fL (80.0-100.0); Mean Platelet Volume 9.3 fL (9.4-12.4); Monocytes # (auto) 0.49 K/uL (0.24-0.82); Monocytes % (auto) 6.6 %; Neutrophils # (auto) 4.35 K/uL (1.4-6.5); Platelet Count 232 K/uL (130-400); RDW Coefficient of Variation 13.7 % (11.5-14.5); RDW Standard Deviation 45.2 fL (36.4-46.3); Red Blood Count 4.98 M/uL (4.63-6.08); White Blood Count 7.38 K/ul (4.8-10.8)
[2022-07-08 11:31] LABS: Albumin Globulin Ratio 1.5 (0.9-2); Albumin Level 4.4 gm/dl (3.4-5.0); BUN Creatinine Ratio 12.8 (10-20); Bilirubin,Total 0.6 mg/dl (0.2-1.0); Calcium 9.1 mg/dl (8.5-10.1); Creatinine Clr Calc Pharmacy 113.3 ml/min; Est GFR (African American) 108.5 ml/min; Est GFR (Non-African American) 93.6 ml/min; Globulin 2.9 gm/dl (2.5-4.0); Total Protein 7.3 gm/dl (6.0-8.3)
[2022-07-08 11:35] LABS: Troponin I High Sensitivity 4.5 pg/ml (0-20)
--- NOTE | 2022-07-08 12:19 | XRay Report ---
XR chest 1V portable CLINICAL HISTORY: scynope TECHNIQUE: Single frontal radiograph of the chest was obtained. Comparison: Comparison is made to chest radiograph 06/03/2021 FINDINGS: No lines and tubes are seen. The cardiomediastinal silhouette is normal. The lungs are clear. No evid ence of pleural effusion or pneumothorax. IMPRESSION: No acute chest disease. ACT 112: Negative or not required by law. Electronically signed by: Rubén Shore M.D. 07/08/2022 12:18 PM
[2022-07-08] MEDS ORDERED: HYDROmorphone INJ 0.5 MG/0.5 ML SYR IV STA (12:33)
--- NOTE | 2022-07-08 13:11 | Magnetic Resonance Report ---
MR lumbar spine wo con CLINICAL HISTORY: 62 years-old Male with injection back pain and weakness. Subacute low back pain wi th prior lumbar spine surgery. COMPARISON: MRI lumbar spine 06/04/2022. TECHNIQUE: Multiplanar, multi sequence MRI of the lumbar spine was performed without intravenous cont rast. FINDINGS: Mannequin Molder localizer images demonstrate no gross extraspinal abnormality. Partially imaged 1.6 cm cystic s tructure of the left abdomen suggestive of a renal cyst. No abdominal aortic aneurysm. Conus medullar is terminates at the T12-L1 level. Signal within the imaged thoracic spinal cord is within normal rios its. No acute fracture, subluxation, endplate erosion or marrow replacing process. Mostly mild multil evel intervertebral disc space narrowing with disc desiccation at L2-L3 through L5-S1. Mostly mild mu ltilevel spondylitic spurring with moderate facet arthrosis. Prior left L5-S1 hemilaminectomy. T12-L1: No central canal or neural foraminal stenosis. Unchanged. L1-L2: No central canal or neural foraminal stenosis. Unchanged. L2-L3: No central canal or neural foraminal stenosis. Unchanged. L3-L4: No central canal or neural foraminal stenosis. Unchanged. L4-L5: Small posterior annular disc bulge eccentric to the right lateral recess. There is abutment w ithout displacement of the right L5 nerve root. Ligamentum flavum thickening with moderate facet arth rosis. Moderate left with mild right neural foraminal narrowing appears unchanged. L5-S1: Mild spondylitic spurring. Posterior annular disc bulge with small central disc protrusion an d annular fissure redemonstrated with possible abutment of the left S1 nerve root. Ligamentum flavum thickening with moderate facet arthrosis. Minimal left greater than right neural foraminal narrowing. The central canal is patent. Unchanged. IMPRESSION: 1. Stable exam compared to the MRI lumbar spine study obtained 06/04/2022. 2. No acute fracture or marrow edema. 3. Mild intervertebral disc space narrowing with moderate facet arthrosis as above. ACT 112: Negative or not required by law. The above report was generated using voice recognition software. It may contain grammatical, syntax o r spelling errors. Dictated: 07/08/2022 12:26 PM Transcribed: 07/08/2022 12:43 PM Elizabeth [id number] Marko Electronically signed by: Kai Juarez M.D. 07/08/2022 1:09 PM
[2022-07-08] MEDS ORDERED: dexAMETHasone**PF** 10 MG/ML VIAL IV ONE (13:16)
[2022-07-08] MEDS ORDERED: MoRPHine SULFATE 10 MG/ML CARP/VIAL IV STA (13:16)
[2022-07-08] MEDS ORDERED: KETOROLAC TROMETHAMINE 15 MG/ML VIAL IV ONE (13:16)
--- NOTE | 2022-07-08 13:25 | History & Physical Report ---
Date of Service July 08, 2022 Assessment & Plan (1) Back pain: Plan: Back pain Following lumbar injection. Patient developed worsening pain radiating to his knees bilaterally with some numbness, and initial reports of weakness although 5/5 strength on exam. MRI was obtained in ER for concern of potential postprocedural bleed, no interval change from prior. Was discussed with Dr. Diego by ER provider, they will see in consult following admission and this ti me will admit for pain control and trial antispasmodic with completion of evaluation for syncopal episode. Patient has received dexamethasone and Toradol while in ER. Continue neurochecks every 4 hours overnight Syncope Patient reports was in the setting of severe pain and standing, no prior syncopal episodes Denies chest pain, chest pressure, shortness of breath, orthopnea Was out for couple of seconds at most a minute per family, no weakness and no confusion following EKG without acute changes, troponin normal. Echo pending for completion, will follow on telemetry then downgrade Type II DM Hold home metformin Type II DM diet Weight-based basal bolus Hyperlipidemia Continue rosuvastatin DVT prophylaxis: SCDs, defer pharmacal prophylaxis due to recent injection to Disposition: Medical/surgical Diet: Type II DM CODE STATUS: Full code (2) Numbness and tingling of leg: (3) Type II diabetes mellitus: (4) Hyperlipidemia: History of Present Illness Primary Care Provider: Adolfo Zepeda MD Jorgito Reilly is a 62-year-old male with a past medical history of radiating low back pain with a history of operative intervention with Dr. Diego 2003 who underwent a epidural injection yesterday and who has had rapidly worsening pain severe enough to cause him to pass out and weakness/pain limitation to ambulation which has not improved with any [id number] treatments and who presents for reevaluation and inability to ambulate. Patient did not improve in the ER following dexamethasone, hydromorphone, ketorolac, morphine administration. Given her weakness and rapid worsening MRI was obtained which showed no interval change compared to prior Pain 6 weeks ago after bending over w pop checking tire Dr. Oliva injection 4 weeks ago Checkup yesterday, had a second epidural injection L5/S1. Was not having any pain radiating into legs, but went home and had pain into both legs/thighs. [place] lightheaded/dizzy with some blurry vision and severe pain and felt like he was close to passing out. Went to sleep and back pain was '20x worse than normal' and this morning he stood up and got dizzy and passed out. Tumbled over and daughter got him up, was out for less than a minute, maybe only a few seconds. Pt reports pain gets so bad it makes him lightheadedness No chest pain, chest pressure, shortness of breath/dyspnea. No nausea/vomiting. [place] a little sick to stomach, not feeling that way currently No swelling in the legs or feet No orthopnea At bedside pain going into both legs which stops at the knee No saddle anesthesia. No bowel/bladder incontienence or retention Cannot lay down due to pain, was able to tolerate MRI with difficulty Neck surgery w Dr. Christine many years ago Medical History: Reviewed Medications: Reviewed Surgical History: Reviewed Allergies: Reviewed Social History: Former alcohol use, none in the last 2 years. No tobacco use Code Status: Full EKG: Normal sinus rhythm, QTC 427, no ST segment or T wave changes, no change compared to prior Allergies Allergy/AdvReac Type Severity Reaction Status Date / Time silodosin Allergy Severe SHORTNESS Verified 06/02/22 14:16 OF BREATH-"FELT LIKE HAVING A HEART ATTACK". hydrocodone Allergy Mild itching, Verified 06/02/22 14:16 tingling around mouth Home Medications Medication Instructions Recorded Confirmed Type metformin 500 mg tablet,extended 500 mg PO DAILY #180 tabs 01/26/22 06/02/22 Rx release 24 hr rosuvastatin 5 mg tablet 5 mg PO DAILY #90 tabs 01/26/22 06/02/22 Rx cyclobenzaprine 10 mg tablet 10 mg PO TID PRN muscle spasm #30 05/23/22 05/23/22 Rx tabs prednisone 10 mg tablets in a dose See Rx Instructions PO .COMPLEX 05/23/22 06/02/22 Rx pack #21 ea oxycodone 5 mg tablet 5 mg PO Q4H PRN pain #30 tabs 06/02/22 06/02/22 Rx Past Med/Surg History Medical History Degenerative disc disease Hyperlipidemia Kidney stones Lumbar radiculopathy Meralgia paresthetica of both lower extremities Numbness and tingling of leg Pneumonia due to COVID-19 virus Type II diabetes mellitus Surgical History H/O cervical spine surgery "x2" H/O lumbosacral spine surgery "x2" History of appendectomy History of arthroscopy of left knee History of cystoscopy History of fusion of cervical spine x2--limited from side to side and cant tip head back very far History of herniorrhaphy "x2" History of left inguinal hernia repair x3 History of lithotripsy History of lumbar discectomy History of repair of left rotator cuff History of tooth extraction Family History Mother Family hx of colon cancer Diabetes Father Healthy adult Brother Healthy adult Sister Healthy adult Other Colorectal cancer No family history of adverse response to anesthesia Denies family history of Prostate cancer Social History (Updated 06/02/22 @ 14:24 by EULALIO Morrissey) Smoking Status: Never smoker Second Hand Exposure: Yes (parents smoked); Hx Alcohol Use: No Hx Substance Use: No Preferred Language: [place] Communication Ability: Effective Loftsman Required: No Beliefs That Will Affect Care: None Current Living Situation: Significant Other current occupational status: disabled Feels Safe at Home: Yes Assistive Devices: None Review of Systems Review of Systems: All systems reviewed & are unremarkable except as noted in HPI & below Physical Exam Physical Exam: General: A&Ox3. NAD. Cooperative. HEENT: Atraumatic, normocephalic. Pulm: CTAB A&P. -wheezes, -rales, -rhonchi. Symmetrical chest rise. No increased work of breathing. No respiratory distress. Cardiac: RRR, -mrg. Radial pulses intact and symmetrical. Abdominal: Nontender, nondistended, soft. BS present. MOTOR: Spine: No tenderness to midline palpation. Pt does endorse paraspinal tenderness at ~L3-L5 deep palpation bilaterally, but palpation does not make pain worse. RUE: 5/5 supervisor customer complaint service strength, finger flexion/extension, interosseus LUE: 5/5 supervisor customer complaint service strength, finger flexion/extension, interosseus RLE: 5/5 to hip flexion/extension, knee flexion/extension, ankle dorsiflexion/plantarflexion. Hip flexion limited slightly by pain LLE: 5/5 to hip flexion/extension, knee flexion/extension, ankle dorsiflexion/plantarflexion. Hip flexion limited slightly by pain REFLEXES: 2/4 patellar, no clonus SENSORY: Normal to touchin lower extremities without deficit or asymmetry No saddle anesthesia Results & Data Results & Data ([facility]) Vital Signs (Past 12 Hours) Vital Signs Temp Pulse Pulse Resp BP BP Pulse Ox 07/08/22 12:45 87 20 137/94 94 07/08/22 11:09 79 16 133/95 96 07/08/22 11:00 95 07/08/22 10:29 36.5 C 81 18 124/86 98 O2 Del Method 07/08/22 12:45 Room Air 07/08/22 11:09 07/08/22 11:00 Room Air 07/08/22 10:29 Room Air PG Care Time/CCT Total # of Minutes Spent Total Time Spent with Patient: Total time spent is greater than 50% in coordination of care (as documented) at patient's floor/unit and/or counseling patient: Coding Level of Care Code 17936 INT INP/OBS CARE 2/55MIN Diagnoses Back pain M54.9 Numbness and tingling of leg R20.0; R20.2 Type II diabetes mellitus E11.9 Hyperlipidemia E78.5
[2022-07-08] MEDS ORDERED: GLUCOSE 40% GEL 15 GM TUBE PO PRN (14:02)
[2022-07-08] MEDS ORDERED: GLUCOSE 10 TAB/TUBE PO PRN (14:02)
[2022-07-08] MEDS ORDERED: GLUCAGON FOR INJ 1 MG VIAL SQ PRN (14:02)
[2022-07-08] MEDS ORDERED: DEXTROSE 50% 50 ML SYRINGE IV PRN (14:02)
[2022-07-08] MEDS ORDERED: CARBOHYDRATES FOR HYPOGLYCEMIA PO PRN (14:02)
[2022-07-08] MEDS ORDERED: POLYETHYLENE (MIRALAX) 17 GM PACK PO PRN (17:30)
[2022-07-08] MEDS ORDERED: HYDROmorphone INJ 0.5 MG/0.5 ML SYR IV PRN (17:30)
[2022-07-08] MEDS: CYCLOBENZAPRINE HCL 5 MG TAB PO SCH ×2 (18:00→20:14)
[2022-07-08] MEDS: INSULIN ASPART PER UNIT SC SCH ×2 (18:00→20:21)
[2022-07-08] MEDS: LANTUS PER UNIT CHARGE SQ SCH (20:21)
[2022-07-08] MEDS: HYDROmorphone INJ 1 MG/ML SYRINGE IV PRN (23:33)
[2022-07-09] MEDS: HYDROmorphone INJ 1 MG/ML SYRINGE IV PRN ×4 (06:37→21:31)
[2022-07-09 07:24] LABS: Basophils # (auto) 0.01 K/uL (0-0.2); Basophils % (auto) 0.1 %; Hematocrit (blood only) 41.5 % (40.1-51.0); Hemoglobin 13.6 g/dl (14.0-18.0); Immature Granulocytes # (auto) 0.08 K/uL (0.00-0.02); Immature Granulocytes % (auto) 0.7 %; Lymphocytes # (auto) 1.16 K/uL (1.2-3.4); Lymphocytes % (auto) 10.5 %; Mean Corpuscular Hgb Conc 32.8 g/dL (32.0-36.0); Mean Corpuscular Volume 91.4 fL (80.0-100.0); Mean Platelet Volume 9.7 fL (9.4-12.4); Monocytes # (auto) 0.34 K/uL (0.24-0.82); Monocytes % (auto) 3.1 %; Neutrophils # (auto) 9.42 K/uL (1.4-6.5); Neutrophils % (auto) 85.6 %; Platelet Count 233 K/uL (130-400); RDW Coefficient of Variation 13.7 % (11.5-14.5); RDW Standard Deviation 46.3 fL (36.4-46.3); Red Blood Count 4.54 M/uL (4.63-6.08); White Blood Count 11.01 K/ul (4.8-10.8)
[2022-07-09 07:50] LABS: Calcium 8.6 mg/dl (8.5-10.1); Potassium 3.8 mmol/L (3.5-5.1)
[2022-07-09 07:55] LABS: BUN Creatinine Ratio 15.9 (10-20); Creatinine Clr Calc Pharmacy 122.8 ml/min; Est GFR (African American) 110.6 ml/min; Est GFR (Non-African American) 95.4 ml/min
[2022-07-09] MEDS: CYCLOBENZAPRINE HCL 5 MG TAB PO SCH ×3 (08:52→21:31)
[2022-07-09] MEDS: LANTUS PER UNIT CHARGE SQ SCH ×2 (08:57→21:54)
[2022-07-09] MEDS: INSULIN ASPART PER UNIT SC SCH ×4 (08:58→21:54)
--- NOTE | 2022-07-09 11:09 | Orthopedic Consultation ---
Date of Consultation July 09, 2022 Assessment & Plan (1) Back pain: Assessment acute on chronic back and bilateral leg pain. Plan at this time I for the opportunity review his MRI scans. I am unable to explain the severity of his presentation. I am going to obtain a CAT scan to rule out any bony pathology I am not appreciating on MRI. We may consider consultation with in- house interventional pain management for their impressions as well. History of Present Illness Reason for Consultation: Back and bilateral anterior thigh pain Attending Physician: Clyde Howell MD History of Present Illness This is a 62-year-old male that presents to the emergency room yesterday after undergoing a lumbar injection the previous day. He complains of severe incapacitating lumbosacral back pain with pain radiating down the anterior thighs bilaterally. Does not extend below the knees. Is worse with activity. He is unable to sleep. He did have 1 previous injection that provided approximately 40 to 50% resolution of his back pain. This morning he is quite miserable. He is requiring IV Dilaudid. He is able to walk to the bathroom but unable to tolerate any greater distances. Allergies Allergy/AdvReac Type Severity Reaction Status Date / Time silodosin Allergy Severe SHORTNESS Verified 07/08/22 14:17 OF BREATH-"FELT LIKE HAVING A HEART ATTACK". hydrocodone Allergy Mild itching, Verified 07/08/22 14:17 tingling around mouth Home Medications Medication Instructions Recorded Confirmed Type rosuvastatin 5 mg tablet 5 mg PO DAILY #90 tabs 01/26/22 07/08/22 Rx oxycodone 5 mg tablet 5 mg PO Q4H PRN pain #30 tabs 06/02/22 07/08/22 Rx ibuprofen 200 mg tablet (Advil) 600 mg PO Q6H PRN Pain 07/08/22 07/08/22 History metformin 500 mg tablet,extended 500 mg PO BID 07/08/22 07/08/22 History release 24 hr Patient History Medical History Degenerative disc disease Hyperlipidemia Kidney stones Lumbar radiculopathy Meralgia paresthetica of both lower extremities Numbness and tingling of leg Pneumonia due to COVID-19 virus Type II diabetes mellitus Surgical History H/O cervical spine surgery "x2" H/O lumbosacral spine surgery "x2" History of appendectomy History of arthroscopy of left knee History of cystoscopy History of fusion of cervical spine x2--limited from side to side and cant tip head back very far History of herniorrhaphy "x2" History of left inguinal hernia repair x3 History of lithotripsy History of lumbar discectomy History of repair of left rotator cuff History of tooth extraction Family History Mother Family hx of colon cancer Diabetes Father Healthy adult Brother Healthy adult Sister Healthy adult Other Colorectal cancer No family history of adverse response to anesthesia Denies family history of Prostate cancer Social History (Updated 06/02/22 @ 14:24 by EULALIO Morrissey) Smoking Status: Never smoker Second Hand Exposure: Yes (parents smoked); Hx Alcohol Use: No Hx Substance Use: No Preferred Language: Citizen Of [place] Communication Ability: Effective 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 There is evidence of his injection site. There is no appreciable swelling erythema. He is able to stand for me. Reasonable strength testing lower extremities. Results & Data ([facility]) Vital Signs (Past 12 Hours) Vital Signs Temp Pulse Pulse Resp BP BP Pulse Ox 07/09/22 05:59 77 07/09/22 07:58 36.6 C 72 18 116/78 93 07/09/22 03:18 36.8 C 78 18 131/71 92 07/09/22 01:45 77 O2 Del Method 07/09/22 05:59 07/09/22 07:58 Room Air 07/09/22 03:18 Room Air 07/09/22 01:45
--- NOTE | 2022-07-09 13:04 | CT Scan Report ---
CT lumbar spine wo con HISTORY: 62 years-old Male back and leg pain acute low back pain without reported trauma COMPARISON: MRI lumbar spine July 08, 2022, CT lumbar spine 05/26/2022 TECHNIQUE: Multiple axial CT images of the lumbar spine were obtained without the use of IV contrast. A dose lowering technique was used consistent with the principals of ALARA. FINDINGS: acute fracture, subluxation, endplate erosion or marrow replacing process. Mostly mild multilevel int ervertebral disc space narrowing at L2-L3 through L5-S1. Mostly mild multilevel spondylitic spurring with moderate facet arthrosis. Postoperative changes are again noted at L5-S1. Level by level analysi s of the central canal and neural foraminal narrowing is better seen on yesterday's exam. Mild epidur al lipomatosis. Mild nonspecific bilateral perinephric stranding. Atherosclerosis of the aorta. IMPRESSION: 1. No acute fracture or subluxation. 2. Discogenic degeneration with facet arthrosis, most pronounced at L4-L5 and L5-S1 is better evaluat ed on yesterday's MRI exam. ACT 112: Negative or not required by law. The above report was generated using voice recognition software. It may contain grammatical, syntax o r spelling errors. Electronically signed by: Kai Juarez M.D. 07/09/2022 1:02 PM
--- NOTE | 2022-07-09 17:04 | XCELERA ---
[id number]
--- NOTE | 2022-07-09 22:51 | Hospitalist Progress Note ---
Date of Service July 09, 2022 Assessment & Plan (1) Back pain: Plan: Back pain Following lumbar injection. Patient developed worsening pain radiating to his knees bilaterally with some numbness, and initial reports of weakness although 5/5 strength on exam. MRI was obtained in ER for concern of potential postprocedural bleed, no interval change from prior. Was discussed with Dr. Diego by ER provider, they will see in consult following admission and this ti me will admit for pain control and trial antispasmodic with completion of evaluation for syncopal episode. Patient has received dexamethasone and Toradol while in ER. Continue neurochecks-no evidence of any weakness that is focal noted Will discuss with Dr. Diego regarding other strategies regarding pain control Syncope Patient reports was in the setting of severe pain and standing, no prior syncopal episodes Denies chest pain, chest pressure, shortness of breath, orthopnea Was out for couple of seconds at most a minute per family, no weakness and no confusion following EKG without acute changes, troponin normal. Echo pending for completion, will follow on telemetry then downgrade Type II DM Hold home metformin Type II DM diet Weight-based basal bolus Hyperlipidemia Continue rosuvastatin DVT prophylaxis: SCDs, defer pharmacal prophylaxis due to recent injection to (2) Numbness and tingling of leg: (3) Type II diabetes mellitus: (4) Hyperlipidemia: Admission and Anticipated Discharge Date Admission Date: July 08, 2022 Subjective Patient reports only slight improvement in his back pain Otherwise no urinary or bowel incontinence noted Physical Exam Physical Exam: Head and ENT no thyroid enlargement trachea midline Cardiovascular S1-S2 are normal no S3 Lungs bilateral air entry fair no wheezing Abdomen soft nondistended positive bowel sounds no rebound tenderness Extremity shows trace edema Neurologically no focal deficits Skin shows no rash no cyanosis Results & Data Results & Data ([facility]) Vital Signs (Past 12 Hours) Vital Signs Temp Pulse Pulse Resp BP BP Pulse Ox 07/09/22 19:22 36.6 C 77 18 136/84 93 07/09/22 15:15 37.0 C 71 18 121/77 93 07/09/22 14:41 74 07/09/22 11:32 36.7 C 72 18 113/72 95 O2 Del Method 07/09/22 19:22 Room Air 07/09/22 15:15 Room Air 07/09/22 14:41 07/09/22 11:32 Room Air Laboratory Results Lumbar Spine MRI 07/08/22 10:48 MR lumbar spine wo con CLINICAL HISTORY: 62 years-old Male with injection back pain and weakness. Subacute low back pain with prior lumbar spine surgery. COMPARISON: MRI lumbar spine 06/04/2022. TECHNIQUE: Multiplanar, multi sequence MRI of the lumbar spine was performed without intravenous contrast. FINDINGS: Manager Online localizer images demonstrate no gross extraspinal abnormality. Partially imaged 1.6 cm cystic structure of the left abdomen suggestive of a renal cyst. No abdominal aortic aneurysm. Conus medullaris terminates at the T12-L1 level. Signal within the imaged thoracic spinal cord is within normal limits. No acute fracture, subluxation, endplate erosion or marrow replacing process. Mostly mild multilevel intervertebral disc space narrowing with disc desiccation at L2-L3 through L5-S1. Mostly mild multilevel spondylitic spurring with moderate facet arthrosis. Prior left L5-S1 hemilaminectomy. T12-L1: No central canal or neural foraminal stenosis. Unchanged. L1-L2: No central canal or neural foraminal stenosis. Unchanged. L2-L3: No central canal or neural foraminal stenosis. Unchanged. L3-L4: No central canal or neural foraminal stenosis. Unchanged. L4-L5: Small posterior annular disc bulge eccentric to the right lateral recess. There is abutment without displacement of the right L5 nerve root. Ligamentum flavum thickening with moderate facet arthrosis. Moderate left with mild right neural foraminal narrowing appears unchanged. L5-S1: Mild spondylitic spurring. Posterior annular disc bulge with small central disc protrusion and annular fissure redemonstrated with possible abutment of the left S1 nerve root. Ligamentum flavum thickening with moderate facet arthrosis. Minimal left greater than right neural foraminal narrowing. The central canal is patent. Unchanged. IMPRESSION: 1. Stable exam compared to the MRI lumbar spine study obtained 06/04/2022. 2. No acute fracture or marrow edema. 3. Mild intervertebral disc space narrowing with moderate facet arthrosis as above. ACT 112: Negative or not required by law. The above report was generated using voice recognition software. It may contain grammatical, syntax or spelling errors. Dictated: 07/08/2022 12:26 PM Transcribed: 07/08/2022 12:43 PM Elizabeth [id number] [facility]_[place] Electronically signed by: Kai Juarez M.D. 07/08/2022 1:09 PM Chest X-Ray 07/08/22 10:52 XR chest 1V portable CLINICAL HISTORY: scynope TECHNIQUE: Single frontal radiograph of the chest was obtained. Comparison: Comparison is made to chest radiograph 06/03/2021 FINDINGS: No lines and tubes are seen. The cardiomediastinal silhouette is normal. The lungs are clear. No evidence of pleural effusion or pneumothorax. IMPRESSION: No acute chest disease. ACT 112: Negative or not required by law. Electronically signed by: Rubén Shore M.D. 07/08/2022 12:[address] 07/09/22 11:06 CT lumbar spine wo con HISTORY: 62 years-old Male back and leg pain acute low back pain without reported trauma COMPARISON: MRI lumbar spine July 08, 2022, CT lumbar spine 05/26/2022 TECHNIQUE: Multiple axial CT images of the lumbar spine were obtained without the use of IV contrast. A dose lowering technique was used consistent with the principals of ALARA. FINDINGS: acute fracture, subluxation, endplate erosion or marrow replacing process. Mostly mild multilevel intervertebral disc space narrowing at L2-L3 through L5- S1. Mostly mild multilevel spondylitic spurring with moderate facet arthrosis. Postoperative changes are again noted at L5-S1. Level by level analysis of the central canal and neural foraminal narrowing is better seen on yesterday's exam. Mild epidural lipomatosis. Mild nonspecific bilateral perinephric stranding. Atherosclerosis of the aorta. IMPRESSION: 1. No acute fracture or subluxation. 2. Discogenic degeneration with facet arthrosis, most pronounced at L4-L5 and L5-S1 is better evaluated on yesterday's MRI exam. ACT 112: Negative or not required by law. The above report was generated using voice recognition software. It may contain grammatical, syntax or spelling errors. Electronically signed by: Kai Juarez M.D. 07/09/2022 1:02 PM PG Care Time/CCT Total # of Minutes Spent Total Time Spent with Patient: Total time spent is greater than 50% in coordination of care (as documented) at patient's floor/unit and/or counseling patient: Coding Level of Care Code 30626 SUB INP/OBS CARE 2/35MIN Diagnoses Back pain M54.9 Numbness and tingling of leg R20.0; R20.2 Type II diabetes mellitus E11.9 Hyperlipidemia E78.5
--- NOTE | 2022-07-10 05:35 | Electrocardiogram Report ---
Test Reason : Blood Pressure : / mmHG Vent. Rate : 077 BPM Atrial Rate : 077 BPM P-R Int : 128 ms QRS Dur : 102 ms QT Int : 378 ms P-R-T Axes : 024 003 039 degrees QTc Int : 427 ms Poor data quality, interpretation may be adversely affected Normal sinus rhythm Normal ECG When compared with ECG of 03-JUN-2021 16:02, No significant change was found Confirmed by Pastor Beltran ([id number]) on 07/10/2022 5:35:22 AM Referred By: ED Confirmed By:Pastor Beltran
[2022-07-10 08:34] LABS: Hematocrit (blood only) 44.3 % (40.1-51.0); Hemoglobin 14.9 g/dl (14.0-18.0); Mean Corpuscular Hemoglobin 30.3 pg (25.0-34.0); Mean Corpuscular Hgb Conc 33.6 g/dL (32.0-36.0); Mean Corpuscular Volume 90.2 fL (80.0-100.0); Mean Platelet Volume 9.6 fL (9.4-12.4); Platelet Count 230 K/uL (130-400); RDW Coefficient of Variation 13.9 % (11.5-14.5); RDW Standard Deviation 45.8 fL (36.4-46.3); Red Blood Count 4.91 M/uL (4.63-6.08); White Blood Count 10.72 K/ul (4.8-10.8)
[2022-07-10 08:51] LABS: BUN Creatinine Ratio 17.6 (10-20); Calcium 9.1 mg/dl (8.5-10.1); Creatinine Clr Calc Pharmacy 110.3 ml/min; Est GFR (African American) 105.1 ml/min; Est GFR (Non-African American) 90.6 ml/min; Potassium 3.9 mmol/L (3.5-5.1)
--- NOTE | 2022-07-10 09:16 | Orthopedic Progress Note ---
Date of Service July 10, 2022 Assessment & Plan (1) Back pain: Plan: I did review with the patient today the results of his CAT scan and his MRI. Again I am at a loss to the nature of the severe pain he is experiencing. His second injection was utilizing the same medication he had on his initial injection. It was an interspinous injection at the L 4 and certainly welcome their input and guidance. L5 level. I will initiate physical therapy today in the hopes that we can get him home this weekend. He is asked for pain management consult while he is in the hospital. Admission and Anticipated Discharge Date Admission Date: July 08, 2022 Subjective Patient continue complain of mostly back pain. He feels it has steadily impro suzie. His leg pain is also improved. He is undergoing very modest activity walking in the room only. Physical Exam Physical Exam: On exam he is of course anxious secondary to his pain. He does appear a bit more comfortable today. He is neurologically intact to testing. Results & Data ([facility]) Vital Signs (Past 12 Hours) Vital Signs Temp Pulse Pulse Resp BP BP Pulse Ox 07/10/22 07:26 66 07/10/22 07:21 36.6 C 75 18 105/72 91 07/10/22 02:41 36.3 C L 76 18 123/72 92 07/09/22 22:06 76 07/09/22 23:19 36.6 C 73 18 150/86 H 93 O2 Del Method 07/10/22 07:26 07/10/22 07:21 Room Air 07/10/22 02:41 Room Air 07/09/22 22:06 07/09/22 23:19 Room Air
[2022-07-10] MEDS: INSULIN ASPART PER UNIT SC SCH ×4 (09:21→21:17)
[2022-07-10] MEDS: LANTUS PER UNIT CHARGE SQ SCH ×2 (09:21→21:17)
[2022-07-10] MEDS: CYCLOBENZAPRINE HCL 5 MG TAB PO SCH ×3 (09:21→21:17)
[2022-07-10] MEDS: HYDROmorphone INJ 1 MG/ML SYRINGE IV PRN (10:45)
[2022-07-10] MEDS ORDERED: methylPREDNISolone 4 MG TAB, 6 DAY TAPER PO SCH (14:15)
--- NOTE | 2022-07-10 14:42 | Pain Management Consultation ---
Date of Consultation July 10, 2022 Assessment & Plan (1) Back pain: (2) Lumbar facet joint syndrome: (3) Constipation: Plan 1. Patient with axial low back pain of suspected interspinous ligament versus facet etiology who is reporting increased pain status post a recent interspinous ligament injection at L4-[address] Oliva. Unable to explain increased pain complaint based on imaging at this time. 2. Will initiate Medrol Dosepak and Lidoderm patch applied to the affected area 3. Patient may utilize MiraLAX scheduled daily due to constipation, likely opioid induced. 4. Patient may utilize Nucynta 50 mg every 6 hours for as needed breakthrough pain. He was encouraged to utilize Nucynta in place of IV hydromorphone. 5. Patient is not a candidate for further interventional treatment at this time. His potential candidacy for lumbar medial branch block would be dete rmined pending reevaluation in the outpatient setting. 6. Consider adding scheduled Toradol over the next 24 to 48 hours to further reduce inflammatory spine/axial low back pain Thank you for allowing us to participate in the care of Mr. Reilly History of Present Illness Reason for Consultation: Intractable low back pain Requesting Physician: Hiren Diego DO Attending Physician: Clyde Howell MD History of Present Illness Mr. Reilly is a 62-year-old white male who was admitted due to intractable axial low back pain which began shortly after undergoing an L4-5 interspinous ligament injection performed by Dr. Oliva 3 days ago. Patient reported similar injec tion occurred in May which did provide fairly significant relief of his pain. He was reporting some persisting discomfort at the time of his follow-up and repeat injection was performed 3 days ago. He reported that within a few hours of the injection he began experiencing severe intractable low back pain with some radiation into the gluteal and anterior thighs bilaterally. Due to increased pain and a report of a syncopal episode he was evaluated emergently and subsequently admitted to the hospital. His pain has been fairly persistent and 80% axial in the lumbar region. He denied a known injury at the time of his increased axial back pain complaints approximately 6 weeks ago. He has no true radicular pattern to his pain. He is reporting IV hydromorphone is effective for 2-3 hours only. He is reporting difficulty performing any movement without using hydromorphone. Patient was evaluated with Dr. Diego and he also underwent CT and MR lumbar spine which failed to reveal any acute changes compared to prior imaging. There is no recommendation for surgical intervention. He denies any notable weaknesses in the lower extremity, foot drop or episodes of falling. He denies bowel or bladder incontinence or saddle anesthesia. He denies fevers, chills or night sweats. Plan of care discussed with Dr. Sayra Reyez. Pain Assessment Full Body Front + Back: 1. Axial lumbar spine-midline and paravertebral Pain scale - at its best (0-10): 3 Pain scale - at its worst (0-10): 8 Allergies Allergy/AdvReac Type Severity Reaction Status Date / Time silodosin Allergy Severe SHORTNESS Verified 07/08/22 14:17 OF BREATH-"FELT LIKE HAVING A HEART ATTACK". hydrocodone Allergy Mild itching, Verified 07/08/22 14:17 tingling around mouth Home Medications Medication Instructions Recorded Confirmed Type rosuvastatin 5 mg tablet 5 mg PO DAILY #90 tabs 01/26/22 07/08/22 Rx oxycodone 5 mg tablet 5 mg PO Q4H PRN pain #30 tabs 06/02/22 07/08/22 Rx ibuprofen 200 mg tablet (Advil) 600 mg PO Q6H PRN Pain 07/08/22 07/08/22 History metformin 500 mg tablet,extended 500 mg PO BID 07/08/22 07/08/22 History release 24 hr Pain History Pain Intensity Pain scale - at its best (0-10): 3 Pain scale - at its worst (0-10): 8 Patient History Medical History (Updated 07/10/22 @ 14:47 by Garrett Nuñez PA-C) Constipation Degenerative disc disease Hyperlipidemia Kidney stones Lumbar facet joint syndrome Lumbar radiculopathy Meralgia paresthetica of both lower extremities Numbness and tingling of leg Pneumonia due to COVID-19 virus Type II diabetes mellitus Surgical History H/O cervical spine surgery "x2" H/O lumbosacral spine surgery "x2" History of appendectomy History of arthroscopy of left knee History of cystoscopy History of fusion of cervical spine x2--limited from side to side and cant tip head back very far History of herniorrhaphy "x2" History of left inguinal hernia repair x3 History of lithotripsy History of lumbar discectomy History of repair of left rotator cuff History of tooth extraction Family History Mother Family hx of colon cancer Diabetes Father Healthy adult Brother Healthy adult Sister Healthy adult Other Colorectal cancer No family history of adverse response to anesthesia Denies family history of Prostate cancer Social History (Updated 06/02/22 @ 14:24 by EULALIO Morrissey) Smoking Status: Never smoker Second Hand Exposure: Yes (parents smoked); Hx Alcohol Use: No Hx Substance Use: No Preferred Language: Icelandic Communication Ability: Effective Wire Saw Operator Required: No Beliefs That Will Affect Care: None Current Living Situation: Other Current Living Situation Comment: Girl Friend current occupational status: disabled Other Information That Helps Us Care for You: No Feels Safe at Home: Yes Safety Concerns: Feels Safe At This Time Assistive Devices: Cane and Walker Physical Exam Physical Exam: General: Patient was standing upon entering the room and walked around the bed to sit down without obvious discomfort. Speech and thought process appropriate. Mood and affect appropriate. Cognition intact. Head: Normocephalic and atraumatic. ENT: No evidence of nasal or oral mucosal lesions. Mucous membranes are moist. Eyes: Pupils equal round reactive to light. Neck: Supple without adenopathy and full range of motion. Chest: Nontender to palpation of the costosternal junction. Abdomen: Soft and nondistended. No organomegaly. Bowel sounds active. Back/spine: Loss of lumbar lordosis. Well-healed midline surgical incision over the L5-S1 region. Patient is tender over the interspinous ligament approximate level L4-5 and L5-S1. Patient is tender to provocative testing of the facet joints at the L5 and S1 level bilaterally. Facet load-bearing test was equivocal bilaterally. No focal SI joint tenderness. No significant paravertebral spasm appreciated. Nontender in the quadratus lumborum or gluteal musculature to palpation. Lower extremities: SLR negative bilaterally. Strength testing 5/5 and equal. Sensation intact without deficit. JUAN maneuver negative bilaterally. Neurologic: Cranial nerves grossly intact. Ambulatory function normal. Results (Pain Clinic) Diagnostic Review MRI Findings: [facility], [place] [phone] Magnetic Resonance Report Patient:LB REILLY Admit Date:07/08/22 MR#:[id number] Address1:[facility] [place] Acct ID:[id number] Address2:[address] Date:1960 [facility] Zip:[place] [address] Age:62 Location:ED Sex:M Room/Bed: Att Phy: Diagnosis:BACK PAIN, LEG WEAKNESS, PASSING OUT Kristan Phy:Adolfo Zepeda MD Service Date:07/08/22 [facility] Phy: Interpreting Phy:Kai JuarezAdmit Phy: Ordering Phy:Francis Ceja DO cc: ~ MR lumbar spine wo con CLINICAL HISTORY: 62 years-old Male with injection back pain and weakness. Subacute low back pain with prior lumbar spine surgery. COMPARISON: MRI lumbar spine 06/04/2022. TECHNIQUE: Multiplanar, multi sequence MRI of the lumbar spine was performed without intravenous contrast. FINDINGS: Assembler Fitter localizer images demonstrate no gross extraspinal abnormality. Partially imaged 1.6 cm cystic structure of the left abdomen suggestive of a renal cyst. No abdominal aortic aneurysm. Conus medullaris terminates at the T12-L1 level. Signal within the imaged thoracic spinal cord is within normal limits. No acute fracture, subluxation, endplate erosion or marrow replacing process. Mostly mild multilevel intervertebral disc space narrowing with disc desiccation at L2-L3 through L5-S1. Mostly mild multilevel spondylitic spurring with moderate facet arthrosis. Prior left L5-S1 hemilaminectomy. T12-L1: No central canal or neural foraminal stenosis. Unchanged. L1-L2: No central canal or neural foraminal stenosis. Unchanged. L2-L3: No central canal or neural foraminal stenosis. Unchanged. L3-L4: No central canal or neural foraminal stenosis. Unchanged. L4-L5: Small posterior annular disc bulge eccentric to the right lateral recess. There is abutment without displacement of the right L5 nerve root. Ligamentum flavum thickening with moderate facet arthrosis. Moderate left with mild right neural foraminal narrowing appears unchanged. L5-S1: Mild spondylitic spurring. Posterior annular disc bulge with small angel tral disc protrusion and annular fissure redemonstrated with possible abutment of the left S1 nerve root. Ligamentum flavum thickening with moderate facet arthrosis. Minimal left greater than right neural foraminal narrowing. The central canal is patent. Unchanged. IMPRESSION: 1. Stable exam compared to the MRI lumbar spine study obtained 06/04/2022. 2. No acute fracture or marrow edema. 3. Mild intervertebral disc space narrowing with moderate facet arthrosis as above. ACT 112: Negative or not required by law. The above report was generated using voice recognition software. It may contain grammatical, syntax or spelling errors. Dictated: 07/08/2022 12:26 PM Transcribed: 07/08/2022 12:43 PM Elizabeth [id number] SHIRA_Shabnam Electronically signed by: Kai Juarez M.D. 07/08/2022 1:09 PM Dictated:07/08/22 1226 Transcribed: 07/08/[address] Findings: [place], [place] [phone] CT Scan Report Patient:LB REILLY Admit Date:07/08/22 MR#:[id number] Address1:[address] [place] [address] Acct ID:[id number] Address2:[facility] [address] Date:1960 [facility] Zip:[place] [address] Age:62 Location:2N Sex:M Room/Bed:[facility] Att Phy:Clyde Howell MD Diagnosis:BACK PAIN Kristan Phy:Adolfo Zepeda MD Service Date:07/09/22 Fam Phy: Interpreting Phy:Kai JuarezAdmit Phy:Charlie Flanagan MD Ordering Phy:Hiren Diego D.O. cc: ~ CT lumbar spine wo con HISTORY: 62 years-old Male back and leg pain acute low back pain without reported trauma COMPARISON: MRI lumbar spine July 08, 2022, CT lumbar spine 05/26/2022 TECHNIQUE: Multiple axial CT images of the lumbar spine were obtained without the use of IV contrast. A dose lowering technique was used consistent with the principals of ALARA. FINDINGS: acute fracture, subluxation, endplate erosion or marrow replacing process. Mostly mild multilevel intervertebral disc space narrowing at L2-L3 through L5-S1. Mostly mild multilevel spondylitic spurring with moderate facet arthrosis. Postoperative changes are again noted at L5-S1. Level by level analysis of the central canal and neural foraminal narrowing is better seen on yesterday's exam. Mild epidural lipomatosis. Mild nonspecific bilateral perinephric stranding. Atherosclerosis of the aorta. IMPRESSION: 1. No acute fracture or subluxation. 2. Discogenic degeneration with facet arthrosis, most pronounced at L4-L5 and L5-S1 is better evaluated on yesterday's MRI exam. ACT 112: Negative or not required by law. The above report was generated using voice recognition software. It may contain grammatical, syntax or spelling errors. Electronically signed by: Kai Juarez M.D. 07/09/2022 1:02 PM Dictated:07/09/22 1258 Transcribed: 07/09/22 1258
[2022-07-10] MEDS: POLYETHYLENE (MIRALAX) 17 GM PACK PO SCH (15:00)
[2022-07-10] MEDS: methylPREDNISolone 4 MG TAB PO SCH ×2 (15:47→17:36)
[2022-07-10] MEDS: LIDOCAINE 5% 1 PATCH TD SCH (16:54)
[2022-07-10] MEDS: TAPENTADOL HCL 50 MG TAB PO PRN ×2 (16:54→21:18)
[2022-07-10] MEDS ORDERED: methylPREDNISolone 4 MG TAB PO SCH (21:00)
--- NOTE | 2022-07-10 23:05 | Hospitalist Progress Note ---
Date of Service July 10, 2022 Assessment & Plan (1) Back pain: Plan: Back pain Following lumbar injection. Patient developed worsening pain radiating to his knees bilaterally with some numbness, and initial reports of weakness although 5/5 strength on exam. MRI was obtained in ER for concern of potential postprocedural bleed, no interval change from prior. Was discussed with Dr. Diego by ER provider, they will see in consult following admission and this ti me will admit for pain control and trial antispasmodic with completion of evaluation for syncopal episode. Patient has received dexamethasone and Toradol while in ER. Continue neurochecks-no evidence of any weakness that is focal noted Will discuss with Dr. Diego regarding other strategies regarding pain control Syncope Patient reports was in the setting of severe pain and standing, no prior syncopal episodes Denies chest pain, chest pressure, shortness of breath, orthopnea Was out for couple of seconds at most a minute per family, no weakness and no confusion following EKG without acute changes, troponin normal. Echo pending for completion, will follow on telemetry then downgrade Type II DM Hold home metformin Type II DM diet Weight-based basal bolus Hyperlipidemia Continue rosuvastatin DVT prophylaxis: SCDs, defer pharmacal prophylaxis due to recent injection to (2) Numbness and tingling of leg: (3) Type II diabetes mellitus: (4) Hyperlipidemia: Admission and Anticipated Discharge Date Admission Date: July 10, 2022 Subjective Patient reports that his back pain is still present but his lower extremity pain has improved and is patient is able to ambulate Physical Exam Physical Exam: Head and ENT no thyroid enlargement trachea midline Cardiovascular S1-S2 are normal no S3 Lungs bilateral air entry fair no wheezing Abdomen soft nondistended positive bowel sounds no rebound tenderness Extremity shows trace edema Neurologically no focal deficits Skin shows no rash no cyanosis Results & Data Results & Data ([facility]) Vital Signs (Past 12 Hours) Vital Signs Temp Pulse Pulse Resp BP BP Pulse Ox 07/10/22 19:00 36.7 C 78 18 122/76 94 07/10/22 19:25 76 07/10/22 16:17 36.6 C 73 18 129/79 92 07/10/22 11:16 36.7 C 73 18 121/78 93 O2 Del Method 07/10/22 19:00 Room Air 07/10/22 19:25 07/10/22 16:17 Room Air 01/20/23 11:16 Room Air PG Care Time/CCT Total # of Minutes Spent Total Time Spent with Patient: Total time spent is greater than 50% in coordination of care (as documented) at patient's floor/unit and/or counseling patient: Coding Level of Care Code 89171 SUB INP/OBS CARE 2/35MIN Diagnoses Back pain M54.9 Numbness and tingling of leg R20.0; R20.2 Type II diabetes mellitus E11.9 Hyperlipidemia E78.5
[2022-07-11] MEDS: TAPENTADOL HCL 50 MG TAB PO PRN ×4 (03:26→17:47)
[2022-07-11 05:53] LABS: Hematocrit (blood only) 44.2 % (40.1-51.0); Hemoglobin 14.8 g/dl (14.0-18.0); Mean Corpuscular Hemoglobin 30.3 pg (25.0-34.0); Mean Corpuscular Hgb Conc 33.5 g/dL (32.0-36.0); Mean Corpuscular Volume 90.4 fL (80.0-100.0); Mean Platelet Volume 9.5 fL (9.4-12.4); Platelet Count 245 K/uL (130-400); RDW Coefficient of Variation 13.7 % (11.5-14.5); RDW Standard Deviation 45.6 fL (36.4-46.3); Red Blood Count 4.89 M/uL (4.63-6.08); White Blood Count 9.77 K/ul (4.8-10.8)
[2022-07-11] MEDS: methylPREDNISolone 4 MG TAB PO SCH ×3 (06:05→17:47)
[2022-07-11 06:19] LABS: Calcium 9.2 mg/dl (8.5-10.1)
[2022-07-11 06:25] LABS: BUN Creatinine Ratio 19.8 (10-20); Est GFR (African American) 111.2 ml/min; Est GFR (Non-African American) 95.9 ml/min
[2022-07-11] MEDS: CYCLOBENZAPRINE HCL 5 MG TAB PO SCH ×3 (08:02→21:01)
[2022-07-11] MEDS: POLYETHYLENE (MIRALAX) 17 GM PACK PO SCH (08:14)
[2022-07-11] MEDS: LANTUS PER UNIT CHARGE SQ SCH ×2 (08:56→21:08)
[2022-07-11] MEDS: INSULIN ASPART PER UNIT SC SCH ×4 (08:57→20:57)
[2022-07-11] MEDS: LIDOCAINE 5% 1 PATCH TD SCH (09:35)
--- NOTE | 2022-07-11 10:38 | Orthopedic Progress Note ---
Date of Service July 11, 2022 Assessment & Plan (1) Lumbar facet joint syndrome: Plan: At this time he is on new regimen of pain medication which hopefully more effective. I encouraged him to ambulate as tolerated and hopefully he will be able to go home today or tomorrow with follow-up next week for possible facet injections. Admission and Anticipated Discharge Date Admission Date: July 10, 2022 Subjective Patient continues to have some back spasms and back pain with activity but does feels improved overall. Denies any current leg pain. Physical Exam Physical Exam: On exam is in bed. Appears comfortable. Is good strength testing. Results & Data ([facility]) Vital Signs (Past 12 Hours) Vital Signs Temp Pulse Resp BP Pulse Ox O2 Del Method 07/11/22 07:30 36.4 C L 70 16 118/69 94 Room Air
[2022-07-11] MEDS: MAGNESIUM HYDROXIDE SUSP 30 ML UDC PO PRN ×2 (16:02→23:04)
[2022-07-11] MEDS ORDERED: bisacodyL 10 MG SUPP PR PRN (16:49)
[2022-07-11] MEDS ORDERED: methylPREDNISolone 4 MG TAB PO SCH (21:00)
--- NOTE | 2022-07-11 23:27 | Hospitalist Progress Note ---
Date of Service July 11, 2022 Assessment & Plan (1) Back pain: Plan: Back pain Following lumbar injection. Patient developed worsening pain radiating to his knees bilaterally with some numbness, and initial reports of weakness although 5/5 strength on exam. MRI was obtained in ER for concern of potential postprocedural bleed, no interval change from prior. Was discussed with Dr. Diego by ER provider, they will see in consult following admission and this ti me will admit for pain control and trial antispasmodic with completion of evaluation for syncopal episode. Patient has received dexamethasone and Toradol while in ER. 07/10 Continue neurochecks-no evidence of any weakness that is focal noted Will discuss with Dr. Diego regarding other strategies regarding pain control 07/11-patient reports back spasms well when he ambulates Dr. Diego as well as Dr. Tucker of pain medicines report noted (1) Lumbar facet joint syndrome: Patient recommended to use Nucynta by Dr. Tucker, and hopefully the effects of recent injection will assist in his improvement Will assess progress over the next 24 hours and decide on DC over the next 1 to 2 days Syncope Patient reports was in the setting of severe pain and standing, no prior syncopal episodes Denies chest pain, chest pressure, shortness of breath, orthopnea Was out for couple of seconds at most a minute per family, no weakness and no confusion following EKG without acute changes, troponin normal. Echo does not show any wall motion abnormalities or any valvular cause Type II DM Hold home metformin Type II DM diet Weight-based basal bolus Hyperlipidemia Continue rosuvastatin DVT prophylaxis: SCDs, and ambulation as possible (2) Numbness and tingling of leg: (3) Type II diabetes mellitus: (4) Hyperlipidemia: Admission and Anticipated Discharge Date Admission Date: July 10, 2022 Subjective Patient reports that he continues to experience ongoing back spasms when he tries to ambulate Otherwise patient has no radiculopathy noted no chest pain or palpitations noted Patient had received interspinous ligament injection done about 4 days ago on No chest pain or shortness of breath noted Physical Exam Physical Exam: Head and ENT no thyroid enlargement trachea midline Cardiovascular S1-S2 are normal no S3 Lungs bilateral air entry fair no wheezing Abdomen soft nondistended positive bowel sounds no rebound tenderness Patient continues to have intermittent back spasms Extremity shows trace edema Neurologically no focal deficits Skin shows no rash no cyanosis Results & Data Results & Data ([facility]) Vital Signs (Past 12 Hours) Vital Signs Temp Pulse Resp BP Pulse Ox O2 Del Method 07/11/22 23:18 36.4 C L 77 18 144/87 H 95 Room Air 07/11/22 15:51 36.6 C 73 16 144/81 H 96 Room Air Laboratory Results Short CBC 07/11/22 Range/Units 05:27 WBC 9.77 (4.8-10.8) K/ul Hgb 14.8 (14.0-18.0) g/dl Hct 44.2 (40.1-51.0) % Plt Count 245 (130-400) K/uL BMP 07/11/22 05:27 Sodium 137 Potassium 4.0 Chloride 102 Carbon Dioxide 27 BUN 16 Creatinine 0.81 Glucose 127 H Calcium 9.2 PG Care Time/CCT Total # of Minutes Spent Total Time Spent with Patient: Total time spent is greater than 50% in coordination of care (as documented) at patient's floor/unit and/or counseling patient: Coding Level of Care Code 03121 SUB INP/OBS CARE 2/35MIN Diagnoses Back pain M54.9 Numbness and tingling of leg R20.0; R20.2 Type II diabetes mellitus E11.9 Hyperlipidemia E78.5
[2022-07-12 05:43] LABS: Hematocrit (blood only) 46.1 % (40.1-51.0); Hemoglobin 15.7 g/dl (14.0-18.0); Mean Corpuscular Hemoglobin 30.4 pg (25.0-34.0); Mean Corpuscular Hgb Conc 34.1 g/dL (32.0-36.0); Mean Corpuscular Volume 89.2 fL (80.0-100.0); Mean Platelet Volume 9.4 fL (9.4-12.4); Platelet Count 273 K/uL (130-400); RDW Coefficient of Variation 13.8 % (11.5-14.5); RDW Standard Deviation 44.6 fL (36.4-46.3); Red Blood Count 5.17 M/uL (4.63-6.08); White Blood Count 12.08 K/ul (4.8-10.8)
[2022-07-12] MEDS: methylPREDNISolone 4 MG TAB PO SCH ×3 (06:07→17:34)
[2022-07-12] MEDS: TAPENTADOL HCL 50 MG TAB PO PRN ×3 (06:07→18:17)
[2022-07-12 06:15] LABS: BUN Creatinine Ratio 19.5 (10-20); Calcium 9.6 mg/dl (8.5-10.1); Creatinine Clr Calc Pharmacy 115.4 ml/min; Est GFR (Non-African American) 93.2 ml/min; Potassium 3.9 mmol/L (3.5-5.1)
[2022-07-12] MEDS: POLYETHYLENE (MIRALAX) 17 GM PACK PO SCH (08:02)
[2022-07-12] MEDS: CYCLOBENZAPRINE HCL 5 MG TAB PO SCH ×2 (08:03→14:24)
[2022-07-12] MEDS: LIDOCAINE 5% 1 PATCH TD SCH (08:03)
[2022-07-12] MEDS: INSULIN ASPART PER UNIT SC SCH ×3 (08:48→17:45)
[2022-07-12] MEDS: LANTUS PER UNIT CHARGE SQ SCH (08:49)
[2022-07-12] MEDS: ACETAMINOPHEN 325 MG TAB PO PRN ×2 (13:08→17:08)
[2022-07-12] MEDS: MAGNESIUM HYDROXIDE SUSP 30 ML UDC PO PRN (14:27)
--- NOTE | 2022-07-12 20:19 | Discharge Summary ---
Date of Service July 12, 2022 Admission HPI Per Admitting Provider Jorgito Reilly is a 62-year-old male with a past medical history of radiating low back pain with a history of operative intervention with Dr. Diego 2003 who underwent a epidural injection yesterday and who has had rapidly worsening pain severe enough to cause him to pass out and weakness/pain limitation to ambulation which has not improved with any [id number] treatments and who presents for reevaluation and inability to ambulate. Patient did not improve in the ER following dexamethasone, hydromorphone, ketorolac, morphine administration. Given her weakness and rapid worsening MRI was obtained which showed no interval change compared to prior Pain 6 weeks ago after bending over w pop checking tire Dr. Oliva injection 4 weeks ago Checkup yesterday, had a second epidural injection L5/S1. Was not having any pain radiating into legs, but went home and had pain into both legs/thighs. [place] lightheaded/dizzy with some blurry vision and severe pain and felt like he was close to passing out. Went to sleep and back pain was '20x worse than normal' and this morning he stood up and got dizzy and passed out. Tumbled over and daughter got him up, was out for less than a minute, maybe only a few seconds. Pt reports pain gets so bad it makes him lightheadedness No chest pain, chest pressure, shortness of breath/dyspnea. No nausea/vomiting. [place] a little sick to stomach, not feeling that way currently No swelling in the legs or feet No orthopnea At bedside pain going into both legs which stops at the knee No saddle anesthesia. No bowel/bladder incontienence or retention Cannot lay down due to pain, was able to tolerate MRI with difficulty Neck surgery w Dr. Christine many years ago Medical History: Reviewed Medications: Reviewed Surgical History: Reviewed Allergies: Reviewed Social History: Former alcohol use, none in the last 2 years. No tobacco use Code Status: Full EKG: Normal sinus rhythm, QTC 427, no ST segment or T wave changes, no change compared to prior Principal Diagnosis Acute low back pain Discharge Exam Head and ENT no thyroid enlargement trachea midline Cardiovascular S1-S2 are normal no S3 Lungs bilateral air entry fair no wheezing Abdomen soft nondistended positive bowel sounds no rebound tenderness Patient continues to have intermittent back spasms Extremity shows trace edema Neurologically no focal deficits Skin shows no rash no cyanosis Discharge Data Allergies Allergy/AdvReac Type Severity Reaction Status Date / Time silodosin Allergy Severe SHORTNESS Verified 07/08/22 14:17 OF BREATH-"FELT LIKE HAVING A HEART ATTACK". hydrocodone Allergy Mild itching, Verified 07/08/22 14:17 tingling around mouth Consultations 07/08/22 15:10 ED Decision to Admit Stat 07/08/22 17:30 Consult Orthopedic Surgery Routine 07/10/22 09:14 Consult Pain Management Routine Ordered Studies 07/08/22 10:48 MR lumbar spine wo con Stat 07/09/22 11:06 CT lumbar spine wo con Urgent Hospital Course (1) Back pain: Back pain Following lumbar injection. Patient developed worsening pain radiating to his knees bilaterally with some numbness, and initial reports of weakness although 5/5 strength on exam. MRI was obtained in ER for concern of potential postprocedural bleed, no interval change from prior. Was discussed with Dr. Diego by ER provider, they will see in consult following admission and this time will admit for pain control and trial antispasmodic with completion of evaluation for syncopal episode. Patient has received dexamethasone and Toradol while in ER. 07/10 Continue neurochecks-no evidence of any weakness that is focal noted Will discuss with Dr. Diego regarding other strategies regarding pain control 07/11-patient reports back spasms well when he ambulates Dr. Diego as well as Dr. Tucker of pain medicines report noted (1) Lumbar facet joint syndrome: Patient recommended to use Nucynta by Dr. Tucker, and hopefully the effects of recent injection will assist in his improvement Will assess progress over the next 24 hours and decide on DC over the next 1 to 2 days 07/12-patient able to ambulate today and wants to get discharged and follow-up with Dr Garrett Davis of pain management Patient pain is controlled on Lidoderm and Medrol Dosepak Patient has no bowel or bladder incontinence and no postural instability Patient given discharge instructions and instructed to follow-up with Dr. Diego of spine surgery and Dr. Davis for pain management Syncope Patient reports was in the setting of severe pain and standing, no prior syncopal episodes Denies chest pain, chest pressure, shortness of breath, orthopnea Was out for couple of seconds at most a minute per family, no weakness and no confusion following EKG without acute changes, troponin normal. Echo does not show any wall motion abnormalities or any valvular cause Type II DM Hold home metformin Type II DM diet Weight-based basal bolus Hyperlipidemia Continue rosuvastatin DVT prophylaxis: SCDs, and ambulation as possible (2) Numbness and tingling of leg: (3) Type II diabetes mellitus: (4) Hyperlipidemia: Total Time Total Time Spent Total Time Spent (In Minutes): 36 Discharge Plan Discharge Items Patient Disposition: Home - Self-Care Reason For Visit: BACK PAIN Discharge Diagnosis: acute low back pain syncope Activity: Per Instructions section Lifting: Wait until after follow-up appointment Non-emergency contact: Primary Care Provider and Pain Management Call non-emergency contact if: you have any medication questions, your symptoms worsen and your pain is not controlled Follow-up/Referrals: Adolfo Zepeda MD [Primary Care Provider] - Diet: Heart Healthy Addtl Attending Provider Instructions: please see dr garrett davis pain mgmt - 2-3 days f/u dr diego - 1 week Pending Studies at Discharge: No Stand-Alone Forms: My [facility] [employer], Smoking Cessation Medications and DC Order Prescriptions: New lidocaine 5 % Adhesive Patch,Medicated 1 patch transdermal QAM 5 Days Qty: 5 0RF methylprednisolone 4 mg Tablet 4 mg PO 0700,1300,1800,2100 Qty: 5 0RF pantoprazole [Protonix] 40 mg tablet,delayed release (DR/EC) 40 mg PO DAILY Qty: 7 0RF Rx Instructions: send refills to PCP Continued oxycodone 5 mg tablet 5 mg PO Q4H PRN (Reason: pain) Qty: 30 0RF rosuvastatin 5 mg tablet 5 mg PO DAILY Qty: 90 3RF ibuprofen [Advil] 200 mg Tablet 600 mg PO Q6H PRN (Reason: Pain) metformin 500 mg tablet extended release 24 hr 500 mg PO BID Discharge Orders: Discharge Order (Routine); Ordered 07/12/22 Ordered By: Clyde Kelley/Other Patient Handouts: Back Safety Bed, Back Safety: Bending, Back S afety: Lifting, Back Safety: Pushing and Pulling, Back Safety: Sleeping Positions, Back Safety: Sitting, Back Safety: Standing, Back Safety: Turning Admission Data Admit Date/Time: 07/10/22 18:54 Attending Provider: Clyde Howell Admit Provider: Charlie Flanagan Primary Care Provider: Adolfo Zepeda Other Providers: Charlie Flanagan ; Hiren Diego ; Sayra Reyez Other Interventions: Discharge Summary Assessment (RN) Last Done: 07/12/22 17:29 Coding Level of Care Code HOSP INP/OBS DISCH >30 MIN Diagnoses Back pain M54.9 Numbness and tingling of leg R20.0; R20.2 Type II diabetes mellitus E11.9 Hyperlipidemia E78.5
[2022-07-13] MEDS ORDERED: methylPREDNISolone 4 MG TAB PO SCH (07:00)
[2022-07-14] MEDS ORDERED: methylPREDNISolone 4 MG TAB PO SCH (07:00)
[2022-07-15] MEDS ORDERED: methylPREDNISolone 4 MG TAB PO SCH (07:00)
== END 2022-07-12 18:26 | disposition home or self-care (01) | DRG 552 ==
LOC: ED 10:22 → 2N 10:22 → SUATTDRO 13:57 → 2N 16:42 → 3E 07-10 21:56
DX: Z88.8 Allergy status to other drugs, medicaments and biological substances; Z88.5 Allergy status to narcotic agent; M47.817 Spondylosis without myelopathy or radiculopathy, lumbosacral region; Z79.899 Other long term (current) drug therapy; R55 Syncope and collapse; E78.5 Hyperlipidemia, unspecified; E11.9 Type 2 diabetes mellitus without complications; Z79.84 Long term (current) use of oral hypoglycemic drugs; Z86.16 Personal history of COVID-19; R20.2 Paresthesia of skin; M54.50 Low back pain, unspecified